=== PATIENT | female | born 1950 | race Caucasian/White ===

== ENCOUNTER → 2017-01-02 | Outpatient (CLI) | payer BC ==
[~2017-01-02] MED LIST: CLR10 PO; IBUP-1277 PO; ONDA4TAB7 SL; PRT/40 PO; TPM/50 PO
== END | disposition home or self-care (01) ==
LOC: C.MAMM 15:28
PROVIDERS: ATTEND Nurse Practitioner Family
DX: C50.919 Malignant neoplasm of unspecified site of unspecified female breast (principal); Z78.0 Asymptomatic menopausal state; Z87.828 Personal history of other (healed) physical injury and trauma; M85.80 Other specified disorders of bone density and structure, unspecified site

== ENCOUNTER → 2017-02-22 | Outpatient (CLI) | payer BC ==
[~2017-02-22] MED LIST changes: +PANT40TA2 PO; -PRT/40 PO
[2017-02-22 18:06] LABS: URINE APPEARANCE CLEAR (CLEAR); URINE BILIRUBIN NEG (NEG); URINE COLOR YELLOW; URINE NITRITE NEG (NEG); URINE SPECIFIC GRAVITY 1.025 (1.000-1.030); UROBILINOGEN NEG (NEG)
[2017-02-22 18:07] LABS: MANUAL MICROSCOPIC REQUIRED? NO; REVIEW REQ? NO
== END | disposition home or self-care (01) ==
LOC: C.LABSPEC 17:31
PROVIDERS: ATTEND Obstetrics & Gynecology
DX: R39.9 Unspecified symptoms and signs involving the genitourinary system (principal)

== ENCOUNTER → 2017-02-22 | Outpatient (CLI) | payer BC | END | disposition home or self-care (01) | LOC: C.PAPS 09:52 | PROVIDERS: ATTEND Obstetrics & Gynecology | DX: Z01.419 Encounter for gynecological examination (general) (routine) without abnormal findings (principal) ==

== ENCOUNTER → 2017-03-10 | Outpatient (CLI) | payer BC ==
--- NOTE | 2017-03-10 20:00 | DIAGNOSTIC IMAGING REPORT ---
LEFT FOREARM 2 VIEWS ROUTINE CLINICAL HISTORY: INJURY TO LT WRIST/FORARM COMPARISON: Left wrist radiographs February 16, 2015. FINDINGS: There is cortical buckling of the distal metaphysis of the left radius shown on AP projection. This could reflect a minimally displaced fracture. No acute fracture of the left ulna is identified. Alignment of left elbow is anatomic. IMPRESSION: Cortical buckling of the distal metaphysis of the left radius which could reflect a minimally displaced fracture. Electronically signed by: Fco Casarez M.D. 03/10/2017 7:58 PM Dictated Date/Time: 03/10/2017 7:56 PM
== END | disposition home or self-care (01) ==
LOC: C.RAD 18:44
PROVIDERS: ATTEND Nurse Practitioner Family
DX: S63.502A Unspecified sprain of left wrist, initial encounter (principal); X58.XXXA Exposure to other specified factors, initial encounter

== ENCOUNTER → 2017-04-05 | Outpatient (CLI) | payer BC | END | disposition home or self-care (01) | LOC: C.RDSM 15:30 | PROVIDERS: ATTEND Family Medicine Sports Medicine | DX: S62.102A Fracture of unspecified carpal bone, left wrist, initial encounter for closed fracture (principal); X58.XXXA Exposure to other specified factors, initial encounter ==

== ENCOUNTER → 2017-07-09 | Outpatient (CLI) | payer BC ==
[~2017-07-09] MED LIST changes: -PANT40TA2 PO; +PRT/40 PO
--- NOTE | 2017-07-09 14:12 | DIAGNOSTIC IMAGING REPORT ---
CHEST 2 VIEWS ROUTINE HISTORY: 67 years-old Female acute cough. COMPARISON: None available TECHNIQUE: Frontal lateral views of the chest FINDINGS: Cardiomediastinal and hilar silhouettes are within normal limits. There is no pneumothorax, pleural effusion or focal airspace consolidation. No overt pulmonary edema. Surgical clips project over the anterior chest. The bones appear grossly intact. IMPRESSION: No acute cardiopulmonary process. The above report was generated using voice recognition software. It may contain grammatical, syntax or spelling errors. Electronically signed by: Clif Taylor M.D. 07/09/2017 2:11 PM Dictated Date/Time: 07/09/2017 2:10 PM
== END | disposition home or self-care (01) ==
LOC: C.RAD 13:28
PROVIDERS: ATTEND Family Medicine Hospice and Palliative Medicine
DX: R05 Cough (principal); C50.911 Malignant neoplasm of unspecified site of right female breast

== ENCOUNTER → 2017-10-13 | Outpatient (CLI) | payer BC ==
[~2017-10-13] MED LIST changes: +GADAVIST IV PRN; +PANT40TA2 PO; -PRT/40 PO
--- NOTE | 2017-10-13 12:40 | DIAGNOSTIC IMAGING REPORT ---
CHEST COMBO CLINICAL HISTORY: FEMALE BREAST CANCER sternal and bone pain TECHNIQUE: Multi axial MRI acquisition pre and post gadolinium enhancement COMPARISON STUDY: None FINDINGS: Within the limitations of this modality the lungs are considered clear. No major nodularity is appreciated. Several small hepatic cysts. Signal characteristics of the osseous structures are unremarkable. There is no significant bone marrow replacing process. Hilar and mediastinal regions are considered negative for significant adenopathy. Signal characteristics of the sternum and anterior chest wall considered unremarkable. IMPRESSION: Negative study. No evidence for metastatic change . Several small hepatic cysts. 3.8 cm upper pole left renal cyst. The above report was generated using voice recognition software. It may contain grammatical, syntax or spelling errors. Electronically signed by: Horace Mcnamara M.D. 10/13/2017 12:38 PM Dictated Date/Time: 10/13/2017 12:34 PM
== END | disposition home or self-care (01) ==
LOC: C.MRI 11:13
PROVIDERS: ATTEND Nurse Practitioner Family
DX: C50.811 Malignant neoplasm of overlapping sites of right female breast (principal)

== ENCOUNTER 2017-10-30 22:47 | Emergency (ER) | payer BC ==
[~2017-10-30] VITALS: Ht 175.3 cm; Wt 77.7 kg
[~2017-10-30 22:47] MED LIST changes: -GADAVIST IV PRN
[2017-10-30 22:49] VITALS: TEMP 37.1; Ht 175.3 cm; Wt 77.7 kg
[2017-10-30] MEDS ORDERED: KETOROLAC TROMETHAMINE 30 MG/ML VIAL IV STA (23:10)
[2017-10-30] MEDS ORDERED: SODIUM CHLORIDE 0.9% 1000ML 1,000 ML IV STA (23:10)
[2017-10-30] MEDS ORDERED: ALBUT/IPRATROP 3MG/0.5MG NEB 3 ML VIAL INH STA (23:12)
[2017-10-30] MEDS ORDERED: DEXAMETHASONE **PF** INJ 10 MG/ML VIAL IV ONE (23:15)
--- NOTE | 2017-10-30 23:15 | EMERGENCY ROOM VISIT NOTE ---
History Report prepared by Iftikhar: Moon Tejada Under the Supervision of: Dr. Miquel Clay M.D. First contact with patient: 23:00 Chief Complaint: RESPIRATORY PROBLEMS Stated Complaint: FEELS AWFUL, SOB, FEVER, PHLEM, COUGHING History of Present Illness The patient is a 67 year old female who presents to the Emergency Room with complaints of constant shortness of breath beginning a four days ago. The patient notes her shortness of breath worsens when she lays flat. The patient reports a productive cough with yellow sputum, a headache, decreased appetite, and jaw pain. She denies any history of asthma or recent pneumonia. The patient went to [facility] [place] today and was put on azithromycin. She notes being started on doxycycline two days ago. The patient notes recently having cataracts surgery. The patient is worried she might have pneumonia or the flu. The patient reports a history of breast cancer an bilateral mastectomy. She states her last MRI of her chest was unremarkable and showed no signs of disease. The patient does not smoke. Source of History: patient Onset: 4 days ago Position: other (global ) Quality: other (shortness of breath) Timing: constant Modifying Factors (Worsening): other (laying flat) Associated Symptoms: + headache, + cough, + SOB Note: Pt notes jaw pain. Review of Systems See HPI for pertinent positives & negatives. A total of 10 systems reviewed and were otherwise negative. Past Medical & Surgical Medical Problems: (1) Breast cancer Surgical Problems: (1) History of bilateral mastectomy Family History Patient reports no known family medical history. Social History Smoking Status: Never Smoker Smokeless Tobacco Use: No Marital Status: Housing Status: lives with family Current/Historical Medications Scheduled Azithromycin (Zithromax Z-Shaggy), 1 PKT PO UD Doxycycline Monohydrate (Monodox), 100 MG PO BID Loratadine (Claritin), 10 MG PO DAILY Pantoprazole (Pantoprazole Sodium), 40 MG PO DAILY Topiramate (Topamax), 50 MG PO HS [Eye Drops], 1 DROP OPB DIRECTED Scheduled PRN Ibuprofen (Advil), 200 MG PO UD PRN for Pain Ondasetron Odt (Zofran Odt), 4 MG SL Q6H PRN for Nausea or Vomiting Allergies Coded Allergies: Sumatriptan (Verified Allergy, Severe, [id number], 10/30/17) Penicillins (Verified Allergy, Mild, 10/30/17) Codeine (Verified Allergy, Unknown, Itchiness and nausea., 10/30/17) Reported by PT Physical Exam Vital Signs Date Time Temp Pulse Resp B/P (MAP) Pulse Ox O2 Delivery O2 Flow Rate FiO2 10/31/17 00:22 71 18 117/72 99 10/30/17 23:33 98 Room Air 10/30/17 22:49 37.1 58 18 123/64 95 Room Air Physical Exam GENERAL: Patient is very anxious appearing, coughing periodically, and in no acute distress. HEENT: No acute trauma, normocephalic atraumatic, mucous membranes dry, rhinorrhea bilateral nares, posterior pharyngeal erythema, no nasal congestion, no scleral icterus. NECK: No stridor, no adenopathy, no meningismus, trachea is midline. LUNGS: No dyspnea. Clear to auscultation and equal bilaterally. No wheeze, no rhonchi. HEART: Regular rate and rhythm. No murmurs, rubs, gallops appreciated. ABDOMEN: Soft, nontender, bowel sounds positive, no masses appreciated, no peritonitis. BACK: No midline tenderness, no CVA tenderness EXTREMITIES: Normal motion all extremities, no cyanosis, no edema. NEUROLOGIC: Alert and oriented, no acute motor or sensory deficits, no focal weakness, cranial nerves grossly intact. SKIN: No rash, no jaundice, no diaphoresis. Medical Decision & Procedures ER Provider Diagnostic Interpretation: X ray results are stated below per my interpretation: Chest: 1 view: No infiltrate, no effusion, normal cardiac border. Similar Chest X ray to previous. Laboratory Results 10/30/17 23:30 Red Blood Count 4.60, Mean Corpuscular Volume 94.1, Mean Corpuscular Hemoglobin 32.8, Mean Corpuscular Hemoglobin Concent 34.9, Mean Platelet Volume 9.8, Neutrophils (%) (Auto) 67.7, Lymphocytes (%) (Auto) 21.7, Monocytes (%) (Auto) 9.3, Eosinophils (%) (Auto) 0.8, Basophils (%) (Auto) 0.3, Neutrophils # (Auto) 6.09, Lymphocytes # (Auto) 1.95, Monocytes # (Auto) 0.84, Eosinophils # (Auto) 0.07, Basophils # (Auto) 0.03 10/30/17 23:30 Test 10/30/17 23:30 White Blood Count 9.00 K/uL (4.8-10.8) Red Blood Count 4.60 M/uL (4.2-5.4) Hemoglobin 15.1 g/dL (12.0-16.0) Hematocrit 43.3 % (37-47) Mean Corpuscular Volume 94.1 fL (80-100) Mean Corpuscular Hemoglobin 32.8 pg (25-34) Mean Corpuscular Hemoglobin Concent 34.9 g/dl (32-36) Platelet Count 303 K/uL (130-400) Mean Platelet Volume 9.8 fL (7.4-10.4) Neutrophils (%) (Auto) 67.7 % Lymphocytes (%) (Auto) 21.7 % Monocytes (%) (Auto) 9.3 % Eosinophils (%) (Auto) 0.8 % Basophils (%) (Auto) 0.3 % Neutrophils # (Auto) 6.09 K/uL (1.4-6.5) Lymphocytes # (Auto) 1.95 K/uL (1.2-3.4) Monocytes # (Auto) 0.84 K/uL (0.11-0.59) Eosinophils # (Auto) 0.07 K/uL (0-0.5) Basophils # (Auto) 0.03 K/uL (0-0.2) RDW Standard Deviation 43.8 fL (36.4-46.3) RDW Coefficient of Variation 12.8 % (11.5-14.5) Immature Granulocyte % (Auto) 0.2 % Immature Granulocyte # (Auto) 0.02 K/uL (0.00-0.02) Anion Gap 7.0 mmol/L (3-11) Est Creatinine Clear Calc Drug Dose 60.9 ml/min Estimated GFR () 72.3 Estimated GFR (Non- 62.4 BUN/Creatinine Ratio 17.5 (10-20) Calcium Level 9.5 mg/dl (8.5-10.1) Laboratory results as reviewed by me. Medications Administered Medications (Trade) Dose Ordered Sig/Geremias Route Start Time Stop Time Status Last Admin Dose Admin Dexamethasone Sodium Phosphate (Dexamethasone Inj Pf) 10 mg NOW ONCE IV 10/30/17 23:15 10/30/17 23:16 DC 10/30/17 23:37 10 MG Ketorolac Tromethamine (Toradol Inj) 15 mg NOW STAT IV 10/30/17 23:10 10/30/17 23:12 DC 10/30/17 23:37 15 MG Sodium Chloride 1,000 ml @ 999 mls/hr Q1H1M STAT IV 10/30/17 23:10 10/31/17 00:10 DC 10/30/17 23:37 999 MLS/HR Albuterol/ Ipratropium (Duoneb) 3 ml NOW STAT INH 10/30/17 23:12 10/30/17 23:13 DC 10/30/17 23:23 3 ML Oxymetazoline HCl (Afrin 0.05% Nasal [place]) 1 sprays NOW ONCE NA 10/31/17 00:00 10/31/17 00:01 DC 10/31/17 00:17 1 SPRAYS Hydrocodone Bit/ Homatropine Methylb (Hycodan Elix Homepack 5/1.5MG/ 5ML) 1 homepack UD ONCE PO 10/31/17 00:15 10/31/17 00:16 DC 10/31/17 00:17 1 HOMEPACK ED Course 2302: The patient was evaluated in room B5. A complete history and physical exam was performed. 2310: Ordered Sodium Chloride 1000 ml @ 999 mls/hr, Toradol Inj 15 mg IV. 2312: Ordered Duoneb 3 ml INH. 2315: Ordered Dexamethasone Sodium Phosphate 10 mg IV. 0000: Ordered Oxymetazoline HCl 1 sprays NA. 0008: The patient would like to try Afrin and Hycodan and go home. I discussed that her symptoms may last a few more days. We reviewed the symptoms that she should return to the ER. I advised the patient to take only one of the antibiotics she was prescribed. 0015: Ordered Hydrocodone Bit/Homatropine Methylb 1 homepack PO. 0025: Reevaluated the patient. Discussed results and discharge instructions: She verbalized understanding and agreement. The patient is ready for discharge. Medical Decision Differential: Viral, Pharyngitis, Cellulitis, Pneumonia, Influenza, Meningitis, Sepsis, Bacteremia, amongst other pathologies entertained. 67 yr old female with flu like ill ness who over last 48 hours has started both doxycycline and azithromycin. With significant nasal congestion/discomfort and cough that seem to be main issues for her on top of fatigue, headache, body aches, chills, etc. Opted for single dose decadron along with toradol/afrin/ duoneb to see if help with symptoms. No wheezing and no real improvement with duoneb thus I feel bronchitis less likely. She does not have meningitis/sepsis by examination. Her has similar symptoms and she has had symptoms for several days. With local flu outbreak it is most likely this is influenza. As outside of treatment window and she does not have glaring medical comorbidities requiring Tamiflu, I do not see benefit of flu testing at this time. Home with Shikha (jamiene itching noted on chart). Reviewed symptoms requiring return and stressed rest and hydration. Medication Reconcilliation Current Medication List: was personally reviewed by me Blood Pressure Screening Patient's blood pressure: Normal blood pressure Impression Primary Impression: Upper respiratory infection Additional Impressions: Flu-like symptoms Nasal sinus congestion Scribe Attestation The scribe's documentation has been prepared under my direction and personally reviewed by me in its entirety. I confirm that the note above accurately reflects all work, treatment, procedures, and medical decision making performed by me. Departure Information Dispostion Home / Self-Care Referrals Zaina Quispe M.D. (PCP) Forms HOME CARE DOCUMENTATION FORM, IMPORTANT VISIT INFORMATION, WORK / SCHOOL INSTRUCTIONS Patient Instructions ED Flu, My [facility] Additional Instructions You have received a narcotic cough medication. Take one to two TEASPOONS of this every 4 to 6 hours as needed for cough. These medications may cause drowsiness and should not be used with other sedative medications. Do not drive , drink alcohol, perform dangerous activities, nor make important decisions after taking these medications. Problem Qualifiers
[2017-10-30] MEDS ORDERED: AZITTAB PO (23:35)
[2017-10-30] MEDS ORDERED: DOXY100C76 PO (23:35)
[2017-10-30] MEDS ORDERED: EYE DROPS OPB (23:35)
[2017-10-30] MEDS ORDERED: ONDA4TAB10 SL (23:35)
[2017-10-30 23:42] LABS: BASO % 0.3 %; BASO ABS # 0.03 K/uL (0-0.2); COMPLETE YES; EOS % 0.8 %; HEMATOCRIT 43.3 % (37-47); IG% 0.2 %; LYMPH % 21.7 %; LYMPH ABS # 1.95 K/uL (1.2-3.4); MEAN CELL VOLUME 94.1 fL (80-100); MEAN CORPUSCULAR HEMOGLOBIN 32.8 pg (25-34); MEAN CORPUSCULAR HGB CONC 34.9 g/dl (32-36); MEAN PLATELET VOLUME 9.8 fL (7.4-10.4); MONO % 9.3 %; NEUT % 67.7 %; PLATELET COUNT 303 K/uL (130-400)
[2017-10-30 23:59] LABS: BUN/CREATININE RATIO 17.5 (10-20); CALCIUM 9.5 mg/dl (8.5-10.1); CREATININE 0.95 mg/dl (0.60-1.20)
[2017-10-31] MEDS ORDERED: OXYMETAZOLINE HCL 0.05% NA SPR 15 ML BTL ONE
[2017-10-31] MEDS ORDERED: HYCODAN 60ML BOTTLE HOMEPACK PO ONE (00:15)
[2017-10-31 00:22] VITALS: BP 117/72; PULSE 71; O2SAT 99
--- NOTE | 2017-10-31 07:32 | DIAGNOSTIC IMAGING REPORT ---
CHEST ONE VIEW PORTABLE HISTORY: cough COMPARISON: Chest 07/09/2017. FINDINGS: The lungs are clear. Cardiac silhouette is normal in size. No pleural effusions. No pneumothorax. Surgical clips within the anterior chest. IMPRESSION: No acute process. Electronically signed by: Yogesh Charlton M.D. 10/31/2017 7:30 AM Dictated Date/Time: 10/31/2017 7:30 AM
== END 2017-10-31 00:23 | disposition home or self-care (01) ==
LOC: C.EDB 22:48
DX: J06.9 Acute upper respiratory infection, unspecified (principal); J11.1 Influenza due to unidentified influenza virus with other respiratory manifestations; R09.81 Nasal congestion; Z85.3 Personal history of malignant neoplasm of breast; Z90.13 Acquired absence of bilateral breasts and nipples; Z79.899 Other long term (current) drug therapy; Z88.1 Allergy status to other antibiotic agents; Z88.5 Allergy status to narcotic agent; Z88.8 Allergy status to other drugs, medicaments and biological substances

== ENCOUNTER 2018-01-18 09:01 | Emergency (ER) | payer BC, OTHER ==
[~2018-01-18] VITALS: Ht 177.8 cm; Wt 79.1 kg
[~2018-01-18 09:01] MED LIST changes: +AZITTAB PO; +DOXY100C76 PO; +EYE DROPS OPB; +ONDA4TAB10 SL; -ONDA4TAB7 SL
[2018-01-18 09:12] VITALS: TEMP 37; Ht 177.8 cm; Wt 79.1 kg
[2018-01-18] MEDS ORDERED: SULF400T7 PO (09:25)
[2018-01-18] MEDS ORDERED: TRAM-10 PO (09:25)
[2018-01-18] MEDS ORDERED: ATR25 PO (09:25)
[2018-01-18] MEDS ORDERED: ASPIRIN 81 MG CHEW PO STA (09:56)
--- NOTE | 2018-01-18 10:10 | DIAGNOSTIC IMAGING REPORT ---
CHEST ONE VIEW PORTABLE CLINICAL HISTORY: Atypical chest pain COMPARISON STUDY: 10/30/2017 FINDINGS: The cardiac and mediastinal contours are normal. There is no evidence of focal pulmonary consolidation. There is no evidence of failure. No pleural effusions are visualized.[ Surgical clips project over both breasts in both axillary regions. There are minimal left basilar atelectatic changes IMPRESSION: No active disease in the chest. Electronically signed by: Ramon Villarreal M.D. 01/18/2018 10:09 AM Dictated Date/Time: 01/18/2018 10:08 AM
--- NOTE | 2018-01-18 10:17 | EMERGENCY ROOM VISIT NOTE ---
History Report prepared by Iftikhar: Nithin Montoya Under the Supervision of: Dr. Henry Lai M.D. First contact with patient: 09:49 Chief Complaint: PAIN (GENERALIZED) Stated Complaint: L BREAST PAIN History of Present Illness The patient is a 67 year old female who presents to the Emergency Room with complaints of constant excruciating left breast pain starting last night. The patient states that she had breast reconstructive surgery on 01/09 after having a double mastectomy for breast cancer. She states that she is no longer having any cancer treatments. The patient notes that yesterday she had drains removed from the area, and she has not been having any drainage. The patient denies any blood thinners or recent falls. Source of History: patient Onset: last night Position: other (left breast) Symptom Intensity: excruciating Timing: constant Associated Symptoms: + SOB Review of Systems See HPI for pertinent positives and negatives. A total of ten systems were reviewed and were otherwise negative. Past Medical & Surgical Medical Problems: (1) Breast cancer Surgical Problems: (1) History of bilateral mastectomy Family History Patient reports no known family medical history. Social History Smoking Status: Never Smoker Marital Status: Housing Status: lives with family Current/Historical Medications Scheduled Pantoprazole (Pantoprazole Sodium), 40 MG PO DAILY Sulfamethoxazole-Trimethoprim (Bactrim 400MG/80MG), 1 TAB PO BID Topiramate (Topamax), 50 MG PO HS Scheduled PRN Hydroxyzine HCl (Hydroxyzine HCl), 25 MG PO Q6 PRN for Itching Ibuprofen (Advil), 200 MG PO UD PRN for Pain Ibuprofen Tab (Motrin), 800 MG PO Q8H PRN for Pain Ondasetron Odt (Zofran Odt), 4 MG SL Q6H PRN for Nausea or Vomiting Tramadol (Ultram), 100 MG PO Q4H PRN for Pain Allergies Coded Allergies: Sumatriptan (Verified Allergy, Severe, [id number], 01/18/18) Penicillins (Verified Allergy, Mild, 01/18/18) Acetaminophen (Unverified Allergy, Unknown, RASH, 01/18/18) Codeine (Verified Allergy, Unknown, Itchiness and nausea., 01/18/18) Reported by PT Oxycodone (Unverified Allergy, Unknown, RASH, 01/18/18) Physical Exam Vital Signs Date Time Temp Pulse Resp B/P (MAP) Pulse Ox O2 Delivery O2 Flow Rate FiO2 01/18/18 13:03 72 20 129/68 95 Room Air 01/18/18 11:20 75 01/18/18 11:19 94 Room Air 01/18/18 11:19 74 18 144/60 94 Room Air 01/18/18 09:12 37.0 81 18 169/110 96 Room Air Physical Exam Physical Exam GENERAL: She is oriented to person, place, and time. She appears well- developed and well-nourished. She does not appear distressed. ____ HENT: Exam performed. Head: Normocephalic and atraumatic. Right Ear: External ear normal. No mastoid tenderness. Left Ear: External ear normal. No mastoid tenderness. Mouth/Throat: The oropharynx is clear and moist. No trismus in the jaw. No dental abscesses or uvula swelling. No oropharyngeal exudate or tonsillar abscesses. ____ EYES: Conjunctivae and EOM are normal. Pupils are equal, round, and reactive to light. Right eye exhibits no discharge. Left eye exhibits no discharge. No scleral icterus. ____ NECK: Normal range of motion. Neck supple. No JVD present. No spinous process tenderness present. No carotid bruit present. No rigidity. No tracheal deviation and normal range of motion present. No Brudzinski's sign and no Kernig 's sign noted. ____ CV: Normal rate, regular rhythm, normal heart sounds and intact distal pulses. There is no peripheral edema. Palpable radial pulses bue. ____ PULM/CHEST: Effort normal and breath sounds normal. No respiratory distress. No stridor. She has no wheezes. She has no rales. Chest Wall: Incisions from double mastectomy who no erythema or discharge. Wounds appear to be healing appropriately. ____ ABD: The abdomen is soft. Bowel sounds are normal. She has no distension. No mass is present. There is no tenderness. There is no rebound, no guarding, no Singer's sign and no tenderness at McBurney's point. Rovsig negative MUSC/SKEL: Normal range of motion. There is no peripheral edema, tenderness or deformity. LYMPH: No cervical adenopathy. ____ NEURO: She is alert and oriented to person, place, and time. She has normal strength. No cranial nerve deficit or sensory deficit. Coordination and gait normal. GCS eye subscore is 4. GCS verbal subscore is 5. GCS motor subscore is 6. Cerebellar tests wnl. ____ SKIN: Skin is warm and dry. She is not diaphoretic. ____ PSYCH: She has a normal mood and affect. Her behavior is normal. Judgment and thought content normal. ____ Medical Decision & Procedures ER Provider Diagnostic Interpretation: Radiology results as stated below per my review and radiologist interpretation: CHEST ONE VIEW PORTABLE CLINICAL HISTORY: Atypical chest pain COMPARISON STUDY: 10/30/2017 FINDINGS: The cardiac and mediastinal contours are normal. There is no evidence of focal pulmonary consolidation. There is no evidence of failure. No pleural effusions are visualized.[ Surgical clips project over both breasts in both axillary regions. There are minimal left basilar atelectatic changes IMPRESSION: No active disease in the chest. Electronically signed by: Ramon Villarreal M.D. 01/18/2018 10:09 AM Dictated Date/Time: 01/18/2018 10:08 AM CHEST CTA for PULMONARY ARTERIES CT DOSE: 375.79 mGy.cm HISTORY: Short of breath. Anterior chest pain. TECHNIQUE: Multiaxial CT images of the chest were performed following the intravenous administration of contrast to evaluate the pulmonary arteries. Maximal intensity projection images were also obtained. A dose lowering technique was utilized adhering to the principles of ALARA. COMPARISON STUDY: Chest 01/18/2018. FINDINGS: Normal caliber thoracic aorta with no evidence for dissection. The heart is normal in size. No pleural or pericardial effusions. Mild narrowing of approximately 30% the proximal left subclavian artery due to the noncalcified plaque. No filling defects within the pulmonary arteries to suggest pulmonary embolus. The visualized portions of the liver and spleen are unremarkable. A few prominent mediastinal and hilar lymph nodes which measure subcentimeter in short axis diameter. Therefore, these do not meet CT criteria for pathologic involvement. No axillary lymphadenopathy. There are bilateral breast implants. Trace gas and fluid surrounding the implants as well as surgical clips suggestive of recent postoperative change. The implants appear intact. There is 9.3 x 3.1 cm slightly hyperdense fluid collection within the right lateral chest wall best seen on image 82 of 233. This favors a postoperative hematoma. No fractures within the visualized osseous structures. Questionable tiny scattered lucent lesions seen within the spine and sternum. This could be due to osteopenia. The central airways are patent. No pneumothorax. Bibasilar groundglass and linear densities. This favors subsegmental atelectasis. There are few small linear scarlike densities within the right lung apex. No focal lung consolidations to suggest pneumonia. IMPRESSION: 1. No evidence for pulmonary embolus. 2. Trace gas and fluid surrounding the bilateral breast implants as well as surgical clips suggestive of recent postoperative change. The implants appear intact. 3. A 9.3 x 3.1 cm slightly hyperdense fluid collection within the right lateral chest wall which favors a postoperative hematoma. 4. Questionable tiny scattered lucent lesions seen within the spine and sternum. This could be due to osteopenia. 5. Additional findings as described above. Electronically signed by: Yogesh Charlton M.D. 01/18/2018 11:29 AM Dictated Date/Time: 01/18/2018 11:17 AM Laboratory Results 01/18/18 10:13 Red Blood Count 3.43, Mean Corpuscular Volume 93.6, Mean Corpuscular Hemoglobin 30.9, Mean Corpuscular Hemoglobin Concent 33.0, Mean Platelet Volume 9.2, Neutrophils (%) (Auto) 57.5, Lymphocytes (%) (Auto) 25.9, Monocytes (%) (Auto) 13.3, Eosinophils (%) (Auto) 2.5, Basophils (%) (Auto) 0.5, Neutrophils # (Auto ) 3.51, Lymphocytes # (Auto) 1.58, Monocytes # (Auto) 0.81, Eosinophils # (Auto ) 0.15, Basophils # (Auto) 0.03 01/18/18 10:13 Test 01/18/18 10:13 White Blood Count 6.10 K/uL (4.8-10.8) Red Blood Count 3.43 M/uL (4.2-5.4) Hemoglobin 10.6 g/dL (12.0-16.0) Hematocrit 32.1 % (37-47) Mean Corpuscular Volume 93.6 fL (80-100) Mean Corpuscular Hemoglobin 30.9 pg (25-34) Mean Corpuscular Hemoglobin Concent 33.0 g/dl (32-36) Platelet Count 434 K/uL (130-400) Mean Platelet Volume 9.2 fL (7.4-10.4) Neutrophils (%) (Auto) 57.5 % Lymphocytes (%) (Auto) 25.9 % Monocytes (%) (Auto) 13.3 % Eosinophils (%) (Auto) 2.5 % Basophils (%) (Auto) 0.5 % Neutrophils # (Auto) 3.51 K/uL (1.4-6.5) Lymphocytes # (Auto) 1.58 K/uL (1.2-3.4) Monocytes # (Auto) 0.81 K/uL (0.11-0.59) Eosinophils # (Auto) 0.15 K/uL (0-0.5) Basophils # (Auto) 0.03 K/uL (0-0.2) RDW Standard Deviation 45.1 fL (36.4-46.3) RDW Coefficient of Variation 13.3 % (11.5-14.5) Immature Granulocyte % (Auto) 0.3 % Immature Granulocyte # (Auto) 0.02 K/uL (0.00-0.02) Anion Gap 5.0 mmol/L (3-11) Est Creatinine Clear Calc Drug Dose 64.3 ml/min Estimated GFR () 74.2 Estimated GFR (Non- 64.0 BUN/Creatinine Ratio 10.0 (10-20) Calcium Level 9.2 mg/dl (8.5-10.1) Troponin I < 0.015 ng/ml (0-0.045) Laboratory results reviewed by me Medications Administered Medications (Trade) Dose Ordered Sig/Geremias Route Start Time Stop Time Status Last Admin Dose Admin Aspirin (Aspirin Chew) 324 mg NOW STAT PO 01/18/18 09:56 01/18/18 09:58 DC 01/18/18 10:27 324 MG ECG Per My Interpretation Indication: other (left breast pain) Rate (beats per minute): 66 Rhythm: sinus rhythm Findings: other (OK, QRS, and QTc intervals are within normal limits. No ST elevation or depression) ED Course 0949: The patient was evaluated in room C4. A complete history and physical exam was performed. 0956: Aspirin 324mg PO 1154: Vital signs stable. Labs within normal limits including hemoglobin 10.6 and troponin negative. CTA of chest shows no pulmonary embolism but does show A 9.3 x 3.1 cm slightly hyperdense fluid collection within the right lateral chest wall which favors a postoperative hematoma. I discussed the patient's case with Dr. Kierra [facility], and he states that the hematoma is normal for the post-op procedure where the drains were recently pulled. I asked if he thinks that it is better to admit the patient to see if the hematoma is stable as well as the hemoglobin. He thinks that it is unnecessary, and he will follow up with the patient tomorrow. DISCHARGE - Plan of care discussed with patient and questions answered. The patient was given both verbal and printed discharge instructions. The patient verbalized understanding and ability to comply. The patient is to seek outpatient follow up as noted in the discharge instructions. The patient verbalized understanding and ability to comply. The patient is discharged in stable condition. The patient was instructed to return for worsening symptoms. Medical Decision Vital signs stable. Labs within normal limits including hemoglobin 10.6 and troponin negative. CTA of chest shows no pulmonary embolism but does show A 9.3 x 3.1 cm slightly hyperdense fluid collection within the right lateral chest wall which favors a postoperative hematoma. I discussed the patient's case with Dr. Kierra [facility], and he states that the hematoma is normal for the post-op procedure where the drains were recently pulled. I asked if he thinks that it is better to admit the patient to see if the hematoma is stable as well as the hemoglobin. He thinks that it is unnecessary, and he will follow up with the patient tomorrow. DISCHARGE - Plan of care discussed with patient and questions answered. The patient was given both verbal and printed discharge instructions. The patient verbalized understanding and ability to comply. The patient is to seek outpatient follow up as noted in the discharge instructions. The patient verbalized understanding and ability to comply. The patient is discharged in stable condition. The patient was instructed to return for worsening symptoms. Medication Reconcilliation Current Medication List: was personally reviewed by me Blood Pressure Screening Patient's blood pressure: Elevated blood pressure Blood pressure disposition: Elevated BP felt to be situational Consults Time Called: 1140 Consulting Physician: Dr. Kierra [facility] Returned Call: [phone] I discussed the patient's case with Dr. Kierra [facility], and he states that the hematoma is normal for the post-op procedure where the drains were recently pulled. I asked if he thinks that it is better to admit the patient to see if the hematoma is stable as well as the hemoglobin. He thinks that it is unnecessary, and he will follow up with the patient tomorrow. Impression Primary Impression: Post-operative complication Scribe Attestation The scribe's documentation has been prepared under my direction and personally reviewed by me in its entirety. I confirm that the note above accurately reflects all work, treatment, procedures, and medical decision making performed by me. The chart was completed utilizing [employer] Speech voice recognition software. Grammatical errors, random word insertions, pronoun errors, and incomplete sentences are an occasional consequence of this system due to software limitations, ambient noise, and hardware issues. Any formal questions or concerns about the content, text, or information contained within the body of this dictation should be directly addressed to the physician for clarification. Departure Information Dispostion Home / Self-Care Prescriptions Ibuprofen Tab (MOTRIN) 800 Mg Tab 800 MG PO Q8H Y for Pain, #30 TAB Prov: Henry Lai M.D. 01/18/18 Referrals Zaina Quispe M.D. (PCP) Forms HOME CARE DOCUMENTATION FORM, IMPORTANT VISIT INFORMATION, WORK / SCHOOL INSTRUCTIONS Patient Instructions ED Post Op Pain, ED Wound Check Post Op Bleeding, [facility] Problem Qualifiers Primary Impression: Post-operative complication Surgical complication system/body Area: subcutaneous tissue Surgical complication type: hematoma Procedure type: non-dermatologic Qualified Codes : L76.32 - Postprocedural hematoma of skin and subcutaneous tissue following other procedure
[2018-01-18 10:24] LABS: BASO % 0.5 %; BASO ABS # 0.03 K/uL (0-0.2); EOS % 2.5 %; EOS ABS # 0.15 K/uL (0-0.5); HEMATOCRIT 32.1 % (37-47); HEMOGLOBIN 10.6 g/dL (12.0-16.0); IG# 0.02 K/uL (0.00-0.02); LYMPH % 25.9 %; LYMPH ABS # 1.58 K/uL (1.2-3.4); MEAN CELL VOLUME 93.6 fL (80-100); MEAN CORPUSCULAR HEMOGLOBIN 30.9 pg (25-34); MEAN PLATELET VOLUME 9.2 fL (7.4-10.4); MONO % 13.3 %; MONO ABS # 0.81 K/uL (0.11-0.59); NEUT % 57.5 %; NEUT ABS # 3.51 K/uL (1.4-6.5); PLATELET COUNT 434 K/uL (130-400); RED CELL DISTRIBUTION WIDTH CV 13.3 % (11.5-14.5); RED CELL DISTRIBUTION WIDTH SD 45.1 fL (36.4-46.3)
[2018-01-18 10:40] LABS: BLOOD UREA NITROGEN 9 mg/dl (7-18); CALCIUM 9.2 mg/dl (8.5-10.1); CARBON DIOXIDE 24 mmol/L (21-32); CREATININE 0.93 mg/dl (0.60-1.20); GLUCOSE 91 mg/dl (70-99); POTASSIUM 3.9 mmol/L (3.5-5.1); SODIUM 137 mmol/L (136-145)
[2018-01-18] MEDS ORDERED: OPTIRAY 320 IV PRN (11:15)
[2018-01-18 11:19] VITALS: O2SAT 94
--- NOTE | 2018-01-18 11:31 | DIAGNOSTIC IMAGING REPORT ---
CHEST CTA for PULMONARY ARTERIES CT DOSE: 375.79 mGy.cm HISTORY: Short of breath. Anterior chest pain. TECHNIQUE: Multiaxial CT images of the chest were performed following the intravenous administration of contrast to evaluate the pulmonary arteries. Maximal intensity projection images were also obtained. A dose lowering technique was utilized adhering to the principles of ALARA. COMPARISON STUDY: Chest 01/18/2018. FINDINGS: Normal caliber thoracic aorta with no evidence for dissection. The heart is normal in size. No pleural or pericardial effusions. Mild narrowing of approximately 30% the proximal left subclavian artery due to the noncalcified plaque. No filling defects within the pulmonary arteries to suggest pulmonary embolus. The visualized portions of the liver and spleen are unremarkable. A few prominent mediastinal and hilar lymph nodes which measure subcentimeter in short axis diameter. Therefore, these do not meet CT criteria for pathologic involvement. No axillary lymphadenopathy. There are bilateral breast implants. Trace gas and fluid surrounding the implants as well as surgical clips suggestive of recent postoperative change. The implants appear intact. There is 9.3 x 3.1 cm slightly hyperdense fluid collection within the right lateral chest wall best seen on image 82 of 233. This favors a postoperative hematoma. No fractures within the visualized osseous structures. Questionable tiny scattered lucent lesions seen within the spine and sternum. This could be due to osteopenia. The central airways are patent. No pneumothorax. Bibasilar groundglass and linear densities. This favors subsegmental atelectasis. There are few small linear scarlike densities within the right lung apex. No focal lung consolidations to suggest pneumonia. IMPRESSION: 1. No evidence for pulmonary embolus. 2. Trace gas and fluid surrounding the bilateral breast implants as well as surgical clips suggestive of recent postoperative change. The implants appear intact. 3. A 9.3 x 3.1 cm slightly hyperdense fluid collection within the right lateral chest wall which favors a postoperative hematoma. 4. Questionable tiny scattered lucent lesions seen within the spine and sternum. This could be due to osteopenia. 5. Additional findings as described above. Electronically signed by: Yogesh Charlton M.D. 01/18/2018 11:29 AM Dictated Date/Time: 01/18/2018 11:17 AM
[2018-01-18] MEDS ORDERED: IBUP-1451 PO (12:35)
[2018-01-18 13:03] VITALS: BP 129/68; PULSE 72; O2SAT 95
== END 2018-01-18 13:05 | disposition home or self-care (01) ==
LOC: EDBD 09:01 → C.EDC 09:03
DX: L76.32 Postprocedural hematoma of skin and subcutaneous tissue following other procedure (principal); Z90.13 Acquired absence of bilateral breasts and nipples; Z85.3 Personal history of malignant neoplasm of breast; Z88.8 Allergy status to other drugs, medicaments and biological substances; Z88.0 Allergy status to penicillin; Z88.6 Allergy status to analgesic agent; Z88.5 Allergy status to narcotic agent

== ENCOUNTER → 2018-06-04 | Outpatient (CLI) | payer OTHER ==
[~2018-06-04] MED LIST changes: +ATR25 PO; -AZITTAB PO; -CLR10 PO; -DOXY100C76 PO; -EYE DROPS OPB; +IBUP-1451 PO; +SULF400T7 PO; +TRAM-10 PO
== END | disposition home or self-care (01) ==
LOC: C.RDSM 15:30
PROVIDERS: ATTEND Family Medicine Sports Medicine
DX: M25.561 Pain in right knee (principal); Z88.5 Allergy status to narcotic agent; Z88.8 Allergy status to other drugs, medicaments and biological substances; Z88.0 Allergy status to penicillin

== ENCOUNTER 2022-12-19 19:03 | Inpatient (IN) ==
[2022-12-19] MEDS ORDERED: ONDANSETRON INJ 2 MG/ML 2 ML VIAL ONE (19:22)
[2022-12-19] MEDS ORDERED: ONDANSETRON INJ 2 MG/ML 2 ML VIAL IV STA ×3 (19:34→23:42)
[2022-12-19] MEDS ORDERED: MoRPHine SULFATE 4 MG/ML 1 ML CARP\\VIAL IV PRN (19:56)
[2022-12-19] MEDS ORDERED: MoRPHine SULFATE 4 MG/ML 1 ML CARP\\VIAL IV STA (19:56)
[2022-12-19] MEDS ORDERED: diphenhydrAMINE 50 MG/ML VIAL IV STA (19:56)
[2022-12-19 19:58] LABS: Alanine Aminotransferase 59 U/L (7-52); Albumin Globulin Ratio 1.4 (0.9-2); Albumin Level 4.4 gm/dl (3.4-5.0); Alkaline Phosphatase 99 U/L (34-104); Anion Gap 12 (3-11); Aspartate Aminotransferase 26 U/L (13-39); BUN Creatinine Ratio 12.9 (10-20); Bilirubin,Total 0.3 mg/dl (0.2-1.0); Blood Urea Nitrogen 13 mg/dl (6-23); Calcium 9.8 mg/dl (8.5-10.1); Carbon Dioxide 21 mmol/L (21-32); Chloride 108 mmol/L (98-107); Est GFR (African American) 64.9 ml/min; Globulin 3.1 gm/dl (2.5-4.0); Glucose 123 mg/dl (70-99(Fasting)); Lipase 78 U/L (11-82); Potassium 3.8 mmol/L (3.5-5.1); Sodium 141 mmol/L (136-145); Total Protein 7.5 gm/dl (6.0-8.3)
[2022-12-19] MEDS ORDERED: SODIUM CHLORIDE 0.9% 1000ML 500 ML IV ONE (19:58)
--- NOTE | 2022-12-19 20:10 | Emergency Department Note ---
Impression & Plan Left sided abdominal pain, Vomiting, Renal colic, Leukocytosis, S/P colonoscopy ED Provider Note NAME: GEMINI GLOVER AGE: 72 SEX: F : 1950 ARRIVES VIA: Walk-In INFORMANT: [Patient] ED PROVIDER(S): [Neo Ramirez MD] CHIEF COMPLAINT: Abdominal pain HISTORY OF PRESENT ILLNESS: The patient is a 72-year-old female who presents to the ED with lower left-sided abdominal pain that is now radiating to her left flank. She had the pain since having a colonoscopy 5 days ago. Things just keep getting worse and worse. The pain is now severe. She has had nausea no vomiting, she has felt warm but there has been no documented fever, no cough or cold or chest pain. The patient states that she is not eating and drinking that much and cannot recall the last time she urinated. There has not been any diarrhea. She is concerned that there may be an infection or something wrong since the colonoscopy. PMHx/PSHx: See Below SOCIAL HISTORY: See Below. PHYSICAL EXAM: GENERAL: Patient is in significant distress from pain. HEENT: No acute trauma, normocephalic atraumatic, mucous membranes moist, no nasal congestion. NECK: No stridor, no adenopathy, no meningismus, trachea is midline. LUNGS: Clear to auscultation bilaterally, no wheeze, no rhonchi, breath sounds equal. HEART: Without murmurs gallops or rubs, regular rate and rhythm. ABDOMEN: Soft, somewhat distended abdomen with tenderness in the pelvis and the left lower quadrant. EXTREMITIES: No cyanosis or edema, full range of motion of all the joints without pain or difficulty, no signs for acute trauma. NEUROLOGIC: Oriented x 3, no acute motor or sensory deficits, no focal weakness. SKIN: No rash, no jaundice, no diaphoresis. DIFFERENTIAL DIAGNOSIS: Bowel perforation, abscess, diverticulitis, UTI, hydronephrosis, urinary retention, bowel obstruction, among others. EMERGENCY DEPARTMENT COURSE/PROCEDURES: Prior/Outside records reviewed: None ECG per my interpretation: Indication was abdominal pain. The ECG shows a normal sinus rhythm with a rate of 69. There is no ST elevation, no PVCs. The QTc is 428 Continuous Cardiac Monitoring per my interpretation: An order was placed for continuous cardiac monitoring. The monitor shows a rate of 74 with normal sinus rhythm. Observation Note: The patient was placed in observation status at 1905. Observ ation was utilized to determine whether her pain could be adequately controlled. During the time in observation, the patient was frequently reassessed and received IV hydration and IV pain medication. On Final reassessment the patient was found to have a ureteral stone and was still persisting with left-sided abdominal pain--the patient will be admitted at this time. A total observation time of around 5 hours. MEDICAL DECISION MAKING: There is a mild leukocytosis, this certainly could be consistent with infection or just the stress of her current situation. There was a normal hemoglobin. Platelet count very mildly elevated. No renal failure or significant e lectrolyte abnormality. No concerning liver enzyme elevation. No evidence for pancreatitis. Urinalysis showed some blood consistent with renal colic, no urinary infection. COVID test returned negative. Abdominal and pelvis CT shows a large 6 mm left ureteral stone with hydronephrosis. No bowel perforation or diverticulitis seen. On exam, the patient was quite uncomfortable and very nauseated. Patient received IV saline for hydration, she was given 1.5 L. She was given IV Zofran for nausea, she received IV Phenergan for additional nausea control. She was given IV morphine for pain, IV Toradol for pain. She eventually was given IV Dilaudid for pain control. She received IV diphenhydramine for additional nausea and symptom control. The patient does feel improved from when she first arrived but is still having discomfort and still having nausea. She is not in any condition for discharge home. I did speak with urology, I did speak with the on-call hospitalist. Patient is aware of all findings, case management has been involved. DISPOSITION: Given patient's findings and ongoing discomfort/nausea, hospitalization is warranted. Past Med/Surg History Medical History Breast cancer Chronic migraine Fever Graves disease Graves' eye disease Migraines Muscle ache Nocturnal polyuria Surgical History History of ankle surgery History of bilateral mastectomy History of cataract surgery Family History Mother , age 64 of colon cancer Colon cancer Father , age 86 during a surgical procedure. Diabetes Social History Smoking Status: Never smoker Hx Alcohol Use: Yes Alcohol type: wine Alcohol Intake Frequency Comment: One glass every 2 weeks on average Preferred Language: [place] Visual Impairment: No Limitations Beliefs That Will Affect Care: None marital status: Current Living Situation: Spouse current occupational status: retired current occupation: Retired (2015) [employer] Feels Safe at Home: Yes Allergies Allergies Allergy/AdvReac Type Severity Reaction Status Date / Time sumatriptan Allergy Severe SOB-SWELLIN Verified 12/19/22 12:34 G-RASH codeine Allergy Intermediate Itchiness Verified 12/19/22 12:34 and nausea. oxycodone Allergy Intermediate Rash Verified 12/19/22 12:34 Penicillins Allergy Intermediate Rash Verified 12/19/22 12:34 Home Meds Home Medications Medication Instructions Recorded Confirmed albuterol sulfate 90 mcg/actuation 2 puff inhalation QID PRN Wheezing 02/10/20 12/19/22 aerosol inhaler pantoprazole 40 mg tablet,delayed 40 mg PO DAILY 08/10/20 12/19/22 release mecobalamin (vitamin B12) 1,000 1,000 mcg PO DAILY 09/23/21 12/19/22 mcg chewable tablet venlafaxine 75 mg capsule,extended 75 mg PO DAILY 02/25/22 12/19/22 release 24 hr vitamin E 1,150 unit/1.25 mL oral 1,150 unit PO DAILY 07/07/22 12/19/22 liquid cholecalciferol (vitamin D3) 50 2,000 unit PO DAILY 08/03/22 12/19/22 mcg (2,000 unit) capsule atorvastatin 40 mg tablet 40 mg PO QPM 12/19/22 12/19/22 methimazole 10 mg tablet 10 mg PO DAILY 12/19/22 12/19/22 Previous Rx's Medication Instructions Recorded riboflavin (vitamin B2) 400 mg 400 mg PO DAILY #30 tabs 08/27/21 tablet ubrogepant 100 mg tablet (Ubrelvy) 100 mg PO .COMPLEX PRN migraine 12/19/22 headache #10 tabs Results & Data (ED) Vital Signs Vital Signs - 24 hr 12/19/22 19:06 Temperature 35.9 C L Temperature Source Temporal Artery Scan Pulse Rate 74 Respiratory Rate 16 Respiratory Effort / Characteristics Non-Labored Spontaneous Respiratory Depth Normal Blood Pressure 143/79 H Blood Pressure Mean 100 Blood Pressure Position Sitting Pulse Oximetry 97 Oxygen Delivery Method Room Air Sepsis Recent Fever Within 48 Hours No Sepsis New/Unexplained Change in Mental Status N/A Sepsis Action Taken by Nursing No Action Required Home Medications Current Medication List: was personally reviewed by me Laboratory Data Attestation: I reviewed the patient's lab results. 12/19/22 19:13 12/19/22 19:13 Lab Results 12/19/22 12/19/22 12/20/22 Range/Units 19:13 19:13 00:30 WBC 10.90 H (4.8-10.8) K/ul RBC 4.79 (4.20-5.40) M/uL Hgb 14.9 (12.0-16.0) g/dl Hct 43.5 (37.0-47.0) % MCV 90.8 (80.0-100.0) fL MCH 31.1 (25.0-34.0) pg MCHC 34.3 (32.0-36.0) g/dL RDW Std Deviation 39.9 (36.4-46.3) fL RDW Coeff of Jeny 11.9 (11.5-14.5) % Plt Count 406 H (130-400) K/uL MPV 10.4 (9.4-12.4) fL Immature Gran % (Auto) 0.4 % Neut % (Auto) 77.1 % Lymph % (Auto) 16.7 % [place] % (Auto) 4.9 % Eos % (Auto) 0.3 % Baso % (Auto) 0.6 % Neut # (Auto) 8.42 H (1.40-6.50) K/uL Lymph # (Auto) 1.82 (1.2-3.4) K/uL [place] # (Auto) 0.53 (0.11-0.59) K/uL Eos # (Auto) 0.03 (0-0.50) K/uL Baso # (Auto) 0.06 (0-0.2) K/uL Immature Gran # (Auto) 0.04 (0.01-0.20) K/uL Sodium 141 (136-145) mmol/L Potassium 3.8 (3.5-5.1) mmol/L Chloride 108 H (98-107) mmol/L Carbon Dioxide 21 (21-32) mmol/L Anion Gap 12 H (3-11) BUN 13 (6-23) mg/dl Creatinine 1.01 (0.6-1.2) mg/dl Est Cr Clr Drug Dosing Not Reportable Est GFR ( Amer) 64.9 ml/min Est GFR (Non-Af Amer) 56.0 ml/min BUN/Creatinine Ratio 12.9 (10-20) Glucose 123 H (70-99(Fasting)) mg/dl Calcium 9.8 (8.5-10.1) mg/dl Total Bilirubin 0.3 (0.2-1.0) mg/dl AST 26 (13-39) U/L ALT 59 H (7-52) U/L Alkaline Phosphatase 99 (34-104) U/L Total Protein 7.5 (6.0-8.3) gm/dl Albumin 4.4 (3.4-5.0) gm/dl Globulin 3.1 (2.5-4.0) gm/dl Albumin/Globulin Ratio 1.4 (0.9-2) Lipase 78 (11-82) U/L Urine Color Urine Appearance (Clear) Urine pH (4.5-7.5) Ur Specific [place] (1.000-1.030) Urine Protein (Negative) Urine Glucose (UA) (Negative) Urine Ketones (Negative) Urine Blood (Negative) Urine Nitrite (Negative) Urine Bilirubin (Negative) Urine Urobilinogen (Negative) Ur Leukocyte Esterase (Negative) Urine WBC (Auto) (0-5) /hpf Urine RBC (Auto) (0-4) /hpf U Hyaline Cast (Auto) (0-5) /lpf U Epithel Cells (Auto) (0-5) /lpf Urine Bacteria (Auto) (Negative) SARS-CoV-2, RNA, NAAT NEGATIVE (NEGATIVE) 12/20/22 Range/Units 00:30 WBC (4.8-10.8) K/ul RBC (4.20-5.40) M/uL Hgb (12.0-16.0) g/dl Hct (37.0-47.0) % MCV (80.0-100.0) fL MCH (25.0-34.0) pg MCHC (32.0-36.0) g/dL RDW Std Deviation (36.4-46.3) fL RDW Coeff of Jeny (11.5-14.5) % Plt Count (130-400) K/uL MPV (9.4-12.4) fL Immature Gran % (Auto) % Neut % (Auto) % Lymph % (Auto) % [place] % (Auto) % Eos % (Auto) % Baso % (Auto) % Neut # (Auto) (1.40-6.50) K/uL Lymph # (Auto) (1.2-3.4) K/uL [place] # (Auto) (0.11-0.59) K/uL Eos # (Auto) (0-0.50) K/uL Baso # (Auto) (0-0.2) K/uL Immature Gran # (Auto) (0.01-0.20) K/uL Sodium (136-145) mmol/L Potassium (3.5-5.1) mmol/L Chloride (98-107) mmol/L Carbon Dioxide (21-32) mmol/L Anion Gap (3-11) BUN (6-23) mg/dl Creatinine (0.6-1.2) mg/dl Est Cr Clr Drug Dosing Est GFR ( Amer) ml/min Est GFR (Non-Af Amer) ml/min BUN/Creatinine Ratio (10-20) Glucose (70-99(Fasting)) mg/dl Calcium (8.5-10.1) mg/dl Total Bilirubin (0.2-1.0) mg/dl AST (13-39) U/L ALT (7-52) U/L Alkaline Phosphatase (34-104) U/L Total Protein (6.0-8.3) gm/dl Albumin (3.4-5.0) gm/dl Globulin (2.5-4.0) gm/dl Albumin/Globulin Ratio (0.9-2) Lipase (11-82) U/L Urine Color Yellow Urine Appearance Clear (Clear) Urine pH 5.0 (4.5-7.5) Ur Specific [place] > 1.045 H (1.000-1.030) Urine Protein Negative (Negative) Urine Glucose (UA) Negative (Negative) Urine Ketones Negative (Negative) Urine Blood 2+ H (Negative) Urine Nitrite Negative (Negative) Urine Bilirubin Negative (Negative) Urine Urobilinogen Negative (Negative) Ur Leukocyte Esterase Negative (Negative) Urine WBC (Auto) 1-5 (0-5) /hpf Urine RBC (Auto) 5-10 H (0-4) /hpf U Hyaline Cast (Auto) 0 (0-5) /lpf U Epithel Cells (Auto) 10-20 H (0-5) /lpf Urine Bacteria (Auto) Negative (Negative) SARS-CoV-2, RNA, NAAT (NEGATIVE) Administered Medications Discontinued Medications Diphenhydramine HCl (Diphenhydramine 50 Mg/Ml Vial) 12.5 mg IV NOW STA Stop: 12/19/22 19:57 Last Admin: 12/19/22 20:06 Dose: 12.5 mg Documented By: BRINDA Hydromorphone HCl (Hydromorphone Inj 0.5 Mg/0.5 Ml Syr) 0.5 mg IV NOW STA Stop: 12/19/22 20:36 Last Admin: 12/19/22 21:05 Dose: 0.5 mg Documented By: BRINDA Hydromorphone HCl (Hydromorphone Inj 1 Mg/Ml Syringe) 1 mg IV NOW STA Stop: 12/19/22 23:42 Last Admin: 12/20/22 00:25 Dose: 1 mg Documented By: KELLY Sodium Chloride (Nss 1000ml) 500 mls @ 999 mls/hr IV .Q31M ONE Stop: 12/19/22 20:28 Last Infusion: 12/19/22 20:58 Dose: 0 mls/hr Documented By: Admin: 12/19/22 20:07 Dose: 999 mls/hr Documented By: BRINDA Promethazine HCl (Phenergan) 12.5 mg in 50.5 mls @ 202 mls/hr IV NOW STA Stop: 12/19/22 20:49 Last Admin: 12/19/22 21:05 Dose: 202 mls/hr Documented By: BRINDA Sodium Chloride (Nss 1000ml) 1,000 mls @ 999 mls/hr IV .Q1H1M ONE Stop: 12/19/22 23:32 Last Admin: 12/19/22 22:57 Dose: 999 mls/hr Documented By: KELLY Ioversol (Optiray 350 100ml) 87 ml IV ONCE ONE Stop: 12/19/22 20:51 Last Admin: 12/19/22 20:50 Dose: 87 ml Documented By: GORGE Ketorolac Tromethamine (Ketorolac Tromethamine 15 Mg/Ml Vial) 15 mg IV NOW STA Stop: 12/19/22 21:10 Last Admin: 12/19/22 21:35 Dose: 15 mg Documented By: KELLY Morphine Sulfate (Morphine Sulfate 4 Mg/Ml 1 Ml Carp\Vial) 4 mg IV NOW STA Stop: 12/19/22 19:57 Last Admin: 12/19/22 20:07 Dose: 4 mg Documented By: BRINDA Ondansetron HCl (Ondansetron Inj 2 Mg/Ml 2 Ml Vial) Confirm Administered Dose 4 mg .ROUTE .STK-MED ONE Stop: 12/19/22 19:23 Last Admin: 12/19/22 19:35 Dose: Not Given Documented By: DARRYL Ondansetron HCl (Ondansetron Inj 2 Mg/Ml 2 Ml Vial) 4 mg IV NOW STA Stop: 12/19/22 19:35 Last Admin: 12/19/22 19:35 Dose: 4 mg Documented By: DARRYL Ondansetron HCl (Ondansetron Inj 2 Mg/Ml 2 Ml Vial) 4 mg IV NOW STA Stop: 12/19/22 19:57 Last Admin: 12/19/22 20:06 Dose: 4 mg Documented By: BRINDA Ondansetron HCl (Ondansetron Inj 2 Mg/Ml 2 Ml Vial) 4 mg IV NOW STA Stop: 12/19/22 23:43 Last Admin: 12/20/22 00:25 Dose: 4 mg Documented By: KELLY Imaging Data Radiologist's Impression: Abdomen/Pelvis CT 12/19/22 19:38 CT OF THE ABDOMEN AND PELVIS WITH CONTRAST CLINICAL HISTORY: Abdominal pain status post colonoscopy. COMPARISON STUDY: CT of the abdomen and pelvis October 11, 2022. TECHNIQUE: Following IV administration of 87 mL of Optiray, axial images of the abdomen and pelvis were obtained from the lung bases to the proximal femurs. Images were reviewed in the axial, sagittal, and coronal planes. IV contrast was administered without complication. Automated exposure control was utilized for the study. A dose lowering technique was utilized adhering to the principles of ALARA. CT DOSE: 608.89 mGy.cm FINDINGS: No pneumatosis, free air or portal venous gas is present. There is hepatic steatosis. No hepatic lesions are present. No biliary or pancreatic ductal dilatation. Spleen, adrenal glands and right kidney are unremarkable. 2 left renal cysts measure up to 4.3 cm. The left nephrogram is delayed. There is mild left hydronephrosis due to a 6 mm x 3 mm left ureteropelvic junction calculus. There is associated perinephric and periureteral stranding. There are no additional ureteral calculi. There is no evidence for a bowel obstruction. The appendix is normal. Sigmoid diverticulosis without evidence for acute diverticulitis. There is no lymphadenopathy. Major vasculature is patent. There are no acute fractures within the visualized skeletal structures. IMPRESSION: 1. 6 mm x 3 mm left ureteropelvic junction calculus results in mild left hydronephrosis with delayed nephrogram and perinephric stranding. 2. No pneumoperitoneum. No bowel wall thickening. 3. Sigmoid diverticulosis. No evidence for acute diverticulitis. ACT 112: Negative or not required by law. Electronically signed by: Fco Casarez M.D. 12/19/2022 10:05 PM Discharge Plan Visit Data Chief Complaint: Abdominal Pain Stated Complaint: ABDOMINAL PAIN, NEAR SYNCOPE, NAUSEA ED Provider: Neo Ramirez Discharge Problem: Left sided abdominal pain, Vomiting, Renal colic, Leukocytosis, S/P colonoscopy Patient Disposition: Admitted As Inpatient Condition: Fair Forms Stand Alone Forms: [facility] [employer] Prescriptions Prescriptions: No Action mecobalamin (vitamin B12) 1,000 mcg tablet,chewable 1,000 mcg PO DAILY vitamin E 1,150 unit/1.25 mL liquid 1,150 unit PO DAILY cholecalciferol (vitamin D3) 50 mcg (2,000 unit) capsule 2,000 unit PO DAILY riboflavin (vitamin B2) 400 mg tablet 400 mg PO DAILY Qty: 30 5RF Ubrelvy 100 mg tablet 100 mg PO .COMPLEX PRN (Reason: migraine headache) Qty: 10 5RF Rx Instructions: 100mg po prn migraine, may repeat after 2 hours prn. No more than 2 tabs in 24 hrs. albuterol sulfate 90 mcg/actuation HFA aerosol inhaler 2 puff INHALATION QID PRN (Reason: Wheezing) pantoprazole 40 mg tablet,delayed release (DR/EC) 40 mg PO DAILY Rx Instructions: pt needs refill venlafaxine 75 mg capsule,extended release 24hr 75 mg PO DAILY atorvastatin 40 mg tablet 40 mg PO QPM methimazole 10 mg tablet 10 mg PO DAILY Referrals Referrals: Gilles Archer [Primary Care Provider] -
[2022-12-19 20:14] LABS: Basophils # (auto) 0.06 K/uL (0-0.2); Basophils % (auto) 0.6 %; Eosinophils # (auto) 0.03 K/uL (0-0.50); Eosinophils % (auto) 0.3 %; Hematocrit (blood only) 43.5 % (37.0-47.0); Hemoglobin 14.9 g/dl (12.0-16.0); Immature Granulocytes # (auto) 0.04 K/uL (0.01-0.20); Immature Granulocytes % (auto) 0.4 %; Lymphocytes # (auto) 1.82 K/uL (1.2-3.4); Lymphocytes % (auto) 16.7 %; Mean Corpuscular Hemoglobin 31.1 pg (25.0-34.0); Mean Corpuscular Hgb Conc 34.3 g/dL (32.0-36.0); Mean Corpuscular Volume 90.8 fL (80.0-100.0); Mean Platelet Volume 10.4 fL (9.4-12.4); Monocytes # (auto) 0.53 K/uL (0.11-0.59); Monocytes % (auto) 4.9 %; Neutrophils # (auto) 8.42 K/uL (1.40-6.50); Neutrophils % (auto) 77.1 %; Platelet Count 406 K/uL (130-400); RDW Coefficient of Variation 11.9 % (11.5-14.5); RDW Standard Deviation 39.9 fL (36.4-46.3); Red Blood Count 4.79 M/uL (4.20-5.40)
[2022-12-19] MEDS ORDERED: HYDROmorphone INJ 0.5 MG/0.5 ML SYR IV STA (20:35)
[2022-12-19] MEDS ORDERED: PROMETHAZINE 12.5 MG/50.5 ML BAG IV STA (20:35)
[2022-12-19] MEDS ORDERED: OPTIRAY 350 100ml IV ONE (20:50)
[2022-12-19] MEDS ORDERED: KETOROLAC TROMETHAMINE 15 MG/ML VIAL IV STA (21:09)
--- NOTE | 2022-12-19 22:07 | CT Scan Report ---
CT OF THE ABDOMEN AND PELVIS WITH CONTRAST CLINICAL HISTORY: Abdominal pain status post colonoscopy. COMPARISON STUDY: CT of the abdomen and pelvis October 11, 2022. TECHNIQUE: Following IV administration of 87 mL of Optiray, axial images of the abdomen and pelvis we re obtained from the lung bases to the proximal femurs. Images were reviewed in the axial, sagittal, and coronal planes. IV contrast was administered without complication. Automated exposure control wa s utilized for the study. A dose lowering technique was utilized adhering to the principles of ALARA . CT DOSE: 608.89 mGy.cm FINDINGS: No pneumatosis, free air or portal venous gas is present. There is hepatic steatosis. No he patic lesions are present. No biliary or pancreatic ductal dilatation. Spleen, adrenal glands and rig ht kidney are unremarkable. 2 left renal cysts measure up to 4.3 cm. The left nephrogram is delayed. There is mild left hydronephrosis due to a 6 mm x 3 mm left ureteropelvic junction calculus. There is associated perinephric and periureteral stranding. There are no additional ureteral calculi. There i s no evidence for a bowel obstruction. The appendix is normal. Sigmoid diverticulosis without evidenc e for acute diverticulitis. There is no lymphadenopathy. Major vasculature is patent. There are no ac mira fractures within the visualized skeletal structures. IMPRESSION: 1. 6 mm x 3 mm left ureteropelvic junction calculus results in mild left hydronephrosis with delayed nephrogram and perinephric stranding. 2. No pneumoperitoneum. No bowel wall thickening. 3. Sigmoid diverticulosis. No evidence for acute diverticulitis. ACT 112: Negative or not required by law. Electronically signed by: Fco Casraez M.D. 12/19/2022 10:05 PM
[2022-12-19] MEDS ORDERED: SODIUM CHLORIDE 0.9% 1000ML 1,000 ML IV ONE (22:32)
--- NOTE | 2022-12-19 22:50 | Urology Consultation ---
Date of Consultation December 19, 2022 Assessment & Plan (1) Nephrolithiasis: I discussed with the treating emergency room physician is having the patient admitted on the hospitalist service. Recommend proceeding as follows: Provide analgesics Provide antiemetics Continue hydration measures with IV fluids Urinalysis has been ordered. We will check for the results of these and also obtain a urine culture if appropriate based on urinalysis results. Would recommend initiating antibiotics as the patient is noted to have some perinephric stranding on CT scan At the present time the patient is normotensive without tachycardia. She does not have acute kidney injury and she is noted to be afebrile. Therefore I do not feel she requires an emergent urologic procedure at this time. We will make the patient n.p.o. after midnight tonight and she will be reassessed in the morning and a determination will be made if patient will require cystoscopy with possible stent placement History of Present Illness Reason for Consultation: Nephrolithiasis History of Present Illness This is a 72-year-old female who presented to the emergency department secondary to left-sided flank and abdominal pain. The patient says that she has been having ongoing pain in her left flank and abdomen for approximately 2 months. She says it has never been that severe but got markedly worse today prompting her visit to the emergency department. Patient denies any fevers but has had occasional chills. She has had associated nausea and vomiting. As noted the pain is located in the left flank radiating to the abdomen without modifying factors. The patient notes that she does have some occasional dysuria and this has been going on for approximately 1 month. She says that she was treated with antibiotics as an outpatient. She also believes that she saw some hematuria this morning. The patient initially thought that her pain was related to a recent colonoscopy she underwent as she has had pain with colonoscopies when she has had polyps removed. She does note that she has had a kidney stone many years ago but was able to successfully pass this to without any procedural inter vention. Since arrival to the emergency department the patient has had labs and imaging which independent reviewed. A CT scan of the abdomen pelvis showed the patient had a 6 x 3 mm kidney stone at the left ureteropelvic junction resulting in mild hydronephrosis. There is some associated perinephric and periureteral stranding noted. Labs include a CBC her white blood cell count was 10.9. Hemoglobin and hematocrit were both normal. Platelet count was 406,000. Chemistry profile showed sodium and potassium are both normal as were her BUN and creatinine. A urine sample has been requested but the patient has not provided this yet. At the time my interview the patient was resting comfortably in bed and she was in no distress. Allergies Allergy/AdvReac Type Severity Reaction Status Date / Time sumatriptan Allergy Severe SOB-SWELLIN Verified 12/19/22 12:34 G-RASH codeine Allergy Intermediate Itchiness Verified 12/19/22 12:34 and nausea. oxycodone Allergy Intermediate Rash Verified 12/19/22 12:34 Penicillins Allergy Intermediate Rash Verified 12/19/22 12:34 Home Medications Medication Instructions Recorded Confirmed Type albuterol sulfate 90 mcg/actuation 2 puff inhalation QID PRN Wheezing 02/10/20 12/19/22 History aerosol inhaler pantoprazole 40 mg tablet,delayed 40 mg PO DAILY 08/10/20 12/19/22 History release riboflavin (vitamin B2) 400 mg 400 mg PO DAILY #30 tabs 08/27/21 12/19/22 Rx tablet mecobalamin (vitamin B12) 1,000 1,000 mcg PO DAILY 09/23/21 12/19/22 History mcg chewable tablet venlafaxine 75 mg capsule,extended 75 mg PO DAILY 02/25/22 12/19/22 History release 24 hr vitamin E 1,150 unit/1.25 mL oral 1,150 unit PO DAILY 07/07/22 12/19/22 History liquid cholecalciferol (vitamin D3) 50 2,000 unit PO DAILY 08/03/22 12/19/22 History mcg (2,000 unit) capsule atorvastatin 40 mg tablet 40 mg PO QPM 12/19/22 12/19/22 History methimazole 10 mg tablet 10 mg PO DAILY 12/19/22 12/19/22 History ubrogepant 100 mg tablet (Ubrelvy) 100 mg PO .COMPLEX PRN migraine 12/19/22 12/19/22 Rx headache #10 tabs Patient History Medical History Breast cancer Chronic migraine Fever Graves disease Graves' eye disease Migraines Muscle ache Nocturnal polyuria Surgical History History of ankle surgery History of bilateral mastectomy History of cataract surgery Family History Mother , age 64 of colon cancer Colon cancer Father , age 86 during a surgical procedure. 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 Feels Safe at Home: Yes Review of Systems Constitutional: + chills; no fever Eyes: no diplopia Ear, Nose, Mouth, Throat: no ear pain Respiratory: no cough and no dyspnea Cardiovascular: no chest pain Gastrointestinal: + abdominal pain (Radiating from left flank), + nausea and + vomiting Genitourinary: as per Subjective / HPI Musculoskeletal: + back pain (Left flank) Integumentary: no rash Neurologic: no localized weakness Physical Exam Constitutional: WD/WN, vitals as above Eyes: no conjunctival abnormality Wears glasses ENMT: Ears: no hearing impairment and no external ear abnormality Mouth: no oropharynx abnormality Neck: trachea midline Respiratory: normal respiratory effort; no respiratory distress and no labored breathing Cardiovascular: Rate/Rhythm: regular rate and regular rhythm Vessels: dorsalis pedis pulses present and radial pulses present Gastrointestinal (Abdomen): Soft, nonrigid, nondistended. There is minimal pain with palpation on the left side of her abdomen. There is no rebound tenderness or guarding. Musculoskeletal: No calf tenderness. Feet are warm and nonmottled. Skin: no rashes Neurologic: moves all extremities Psychiatric: A+Ox3, euthymic affect Genitourinary: + CVA tenderness (Noted on left with percussion) Results & Data ([facility]) Vital Signs (Past 12 Hours) Vital Signs Temp Pulse Resp BP Pulse Ox O2 Del Method 12/19/22 19:06 35.9 C L 74 16 143/79 H 97 Room Air PG Care Time/CCT Total # of Minutes Spent Total Time Spent with Patient: Total time spent is greater than 50% in coordination of care (as documented) at patient's floor/unit and/or counseling patient: Coding Level of Care Code 66582 INT INP/OBS CARE Diagnoses Nephrolithiasis N20.0
[2022-12-19] MEDS ORDERED: HYDROmorphone INJ 1 MG/ML SYRINGE IV STA (23:41)
[2022-12-20 00:54] LABS: Appearance Urine Clear (Clear); Bacteria Urine Automated Negative (Negative); Bilirubin Urine Negative (Negative); Blood Urine 2+ (Negative); Cast Urine Automated 0 /lpf (0-5); Color Urine Yellow; Glucose Urine UA Negative (Negative); Ketones Urine Negative (Negative); Leukocyte Esterase Urine Negative (Negative); Nitrite Urine Negative (Negative); Protein Urine Negative (Negative); Specific Gravity Urine > 1.045 (1.000-1.030); Urobilinogen Urine Negative (Negative)
--- NOTE | 2022-12-20 01:07 | History & Physical Report ---
Date of Service December 19, 2022 Assessment & Plan (1) Nephrolithiasis: Plan: 72-year-old female presenting with 5 days of progressive left flank pain, currently "excruciating" with persistent nausea. Laboratory work-up significant for WBC = 10.9 CT of the abdomen with a 6 mm x 3 mm left ureteropelvic junction calculus resulting in mild left hydronephrosis with delayed nephrogram and perinephric stranding. Patient hemodynamically stable, nontoxic in appearance. States that she is able to pass urine but reports that it is less than before Admit to medical telemetry Strain all urine, monitor intake and output Flomax 0.4 mg p.o. nightly Zofran as needed for nausea Morphine as needed for pain Bowel regimen as needed Continue IV fluidsLR at 80 mL/h x 2 L Ceftriaxone 1 g IV daily Urology consultation appreciated (2) Graves disease: Plan: Chronic. Well-controlled. Continue methimazole 10 mg p.o. daily (3) Anxiety: Plan: Chronic. Patient presently quite anxious in the setting of acute pain Pain control as above Continue venlafaxine 75 mg p.o. daily FENLR at 100 mL/h x 2 L, electrolytes within normal limits, n.p.o. for now ProphylaxisTED stockings Codefull per discussion with patient Dispoadmit to medical telemetry History of Present Illness Chief Complaint: Left flank pain Primary Care Provider[facility]illes [facility] 72[facility] presenting with left renal stone. Patient has been ongoing left flank pain over the last 5 days. She thought initially that it was secondary to her recent colonoscopy. Her pain this evening was "excruciating". She also had significant nausea. Additionally, she reports dysuria and decreased urine output as well as urinary incontinence. No additional complaints at this time Upon arrival to the ER she is afebrile, hemodynamic stable, in moderate distress secondary to discomfort. She has received multiple rounds of pain medication as well as antiemetics with minimal improvement. Patient was seen by urology, appreciate recommendations. ER course: Zofran 4 mg IV x3 doses, promethazine 12.5 mg IV Benadryl 12.5 mg IV Morphine 4 mg IV, Dilaudid 0.5 mg IV, Toradol 50 mg IV, Dilaudid 1 mg IV Normal saline x1 L Allergies Allergy/AdvReac Type Severity Reaction Status Date / Time sumatriptan Allergy Severe SOB-SWELLIN Verified 12/19/22 12:34 G-RASH codeine Allergy Intermediate Itchiness Verified 12/19/22 12:34 and nausea. oxycodone Allergy Intermediate Rash Verified 12/19/22 12:34 Penicillins Allergy Intermediate Rash Verified 12/19/22 12:34 Home Medications Medication Instructions Recorded Confirmed Type albuterol sulfate 90 mcg/actuation 2 puff inhalation QID PRN Wheezing 02/10/20 12/19/22 History aerosol inhaler pantoprazole 40 mg tablet,delayed 40 mg PO DAILY 08/10/20 12/19/22 History release riboflavin (vitamin B2) 400 mg 400 mg PO DAILY #30 tabs 08/27/21 12/19/22 Rx tablet mecobalamin (vitamin B12) 1,000 1,000 mcg PO DAILY 09/23/21 12/19/22 History mcg chewable tablet venlafaxine 75 mg capsule,extended 75 mg PO DAILY 02/25/22 12/19/22 History release 24 hr vitamin E 1,150 unit/1.25 mL oral 1,150 unit PO DAILY 07/07/22 12/19/22 History liquid cholecalciferol (vitamin D3) 50 2,000 unit PO DAILY 08/03/22 12/19/22 History mcg (2,000 unit) capsule atorvastatin 40 mg tablet 40 mg PO QPM 12/19/22 12/19/22 History methimazole 10 mg tablet 10 mg PO DAILY 12/19/22 12/19/22 History ubrogepant 100 mg tablet (Ubrelvy) 100 mg PO .COMPLEX PRN migraine 12/19/22 12/19/22 Rx headache #10 tabs Past Med/Surg History Medical History Breast cancer Chronic migraine Fever Graves disease Graves' eye disease Migraines Muscle ache Nocturnal polyuria Surgical History History of ankle surgery History of bilateral mastectomy History of cataract surgery Family History Mother , age 64 of colon cancer Colon cancer Father , age 86 during a surgical procedure. 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 Feels Safe at Home: Yes Review of Systems Review of Systems: All systems reviewed & are unremarkable except as noted in HPI & below Physical Exam Physical Exam: General: patient resting comfortably, NAD, non-toxic in appearance, AA&O x 4, in moderate distress secondary to pain, unsettled in bed Skin: warm, dry, intact, no rashes or lesions HEENT: NC/AT, PERRL, EOMI, anicteric sclera, conjunctiva without injection, external ear normal to inspection and nontender, nares patent, moist mucus membranes, dentition intact, no oropharyngeal lesions, neck supple, trachea midline, no LAD, no thyromegaly, no JVD Heart: +S1/S2, regular, no m/r/g Lungs: equal air entry bilaterally, no rales/rhonchi/wheezes Abd: +BS, soft, NT/ND, no masses/organomegaly/ascites, left flank pain and CVA tenderness Ext: warm, 2+ pulses in UE/LE bilaterally, no clubbing/cyanosis or edema Neuro: nonfocal, patient AA&O x 4, speech intact, no facial droop, moving all extremities on command with equal strength 5/5 Results & Data Results & Data ([facility]) Vital Signs (Past 12 Hours) Vital Signs Temp Pulse Resp BP Pulse Ox O2 Del Method 12/19/22 19:06 35.9 C L 74 16 143/79 H 97 Room Air Laboratory Results Laboratory Results WBC 10.90 K/ul (4.8-10.8) H 12/19/22 19:13 RBC 4.79 M/uL (4.20-5.40) 12/19/22 19:13 Hgb 14.9 g/dl (12.0-16.0) 12/19/22 19:13 Hct 43.5 % (37.0-47.0) 12/19/22 19:13 MCV 90.8 fL (80.0-100.0) 12/19/22 19:13 MCH 31.1 pg (25.0-34.0) 12/19/22 19:13 MCHC 34.3 g/dL (32.0-36.0) 12/19/22 19:13 RDW Std Deviation 39.9 fL (36.4-46.3) 12/19/22 19:13 RDW Coeff of Jeny 11.9 % (11.5-14.5) 12/19/22 19:13 Plt Count 406 K/uL (130-400) H 12/19/22 19:13 MPV 10.4 fL (9.4-12.4) 12/19/22 19:13 Immature Gran % (Auto) 0.4 % 12/19/22 19:13 Neut % (Auto) 77.1 % 12/19/22 19:13 Lymph % (Auto) 16.7 % 12/19/22 19:13 Boyle % (Auto) 4.9 % 12/19/22 19:13 Eos % (Auto) 0.3 % 12/19/22 19:13 Baso % (Auto) 0.6 % 12/19/22 19:13 Neut # (Auto) 8.42 K/uL (1.40-6.50) H 12/19/22 19:13 Lymph # (Auto) 1.82 K/uL (1.2-3.4) 12/19/22 19:13 Boyle # (Auto) 0.53 K/uL (0.11-0.59) 12/19/22 19:13 Eos # (Auto) 0.03 K/uL (0-0.50) 12/19/22 19:13 Baso # (Auto) 0.06 K/uL (0-0.2) 12/19/22 19:13 Immature Gran # (Auto) 0.04 K/uL (0.01-0.20) 12/19/22 19:13 Sodium 141 mmol/L (136-145) 12/19/22 19:13 Potassium 3.8 mmol/L (3.5-5.1) 12/19/22 19:13 Chloride 108 mmol/L (98-107) H 12/19/22 19:13 Carbon Dioxide 21 mmol/L (21-32) 02/06/23 19:13 Anion Gap 12 (3-11) H 12/19/22 19:13 BUN 13 mg/dl (6-23) 12/19/22 19:13 Creatinine 1.01 mg/dl (0.6-1.2) 12/19/22 19:13 Est Cr Clr Drug Dosing Not Reportable 12/19/22 19:13 Est GFR ( Amer) 64.9 ml/min 12/19/22 19:13 Est GFR (Non-Af Amer) 56.0 ml/min 12/19/22 19:13 BUN/Creatinine Ratio 12.9 (10-20) 12/19/22 19:13 Glucose 123 mg/dl (70-99(Fasting)) H 12/19/22 19:13 Calcium 9.8 mg/dl (8.5-10.1) 12/19/22 19:13 Total Bilirubin 0.3 mg/dl (0.2-1.0) 12/19/22 19:13 AST 26 U/L (13-39) 12/19/22 19:13 ALT 59 U/L (7-52) H 12/19/22 19:13 Alkaline Phosphatase 99 U/L (34-104) 12/19/22 19:13 Total Protein 7.5 gm/dl (6.0-8.3) 12/19/22 19:13 Albumin 4.4 gm/dl (3.4-5.0) 12/19/22 19:13 Globulin 3.1 gm/dl (2.5-4.0) 12/19/22 19:13 Albumin/Globulin Ratio 1.4 (0.9-2) 12/19/22 19:13 Lipase 78 U/L (11-82) 12/19/22 19:13 Urine Color Yellow 12/20/22 00:30 Urine Appearance Clear (Clear) 12/20/22 00:30 Urine pH 5.0 (4.5-7.5) 12/20/22 00:30 Ur Specific [place] > 1.045 (1.000-1.030) H 12/20/22 00:30 Urine Protein Negative (Negative) 12/20/22 00:30 Urine Glucose (UA) Negative (Negative) 12/20/22 00:30 Urine Ketones Negative (Negative) 12/20/22 00:30 Urine Blood 2+ (Negative) H 12/20/22 00:30 Urine Nitrite Negative (Negative) 12/20/22 00:30 Urine Bilirubin Negative (Negative) 12/20/22 00:30 Urine Urobilinogen Negative (Negative) 12/20/22 00:30 Ur Leukocyte Esterase Negative (Negative) 12/20/22 00:30 Urine WBC (Auto) 1-5 /hpf (0-5) 12/20/22 00:30 Urine RBC (Auto) 5-10 /hpf (0-4) H 12/20/22 00:30 U Hyaline Cast (Auto) 0 /lpf (0-5) 12/20/22 00:30 U Epithel Cells (Auto) 10-20 /lpf (0-5) H 12/20/22 00:30 Urine Bacteria (Auto) Negative (Negative) 12/20/22 00:30 SARS-CoV-2, RNA, NAAT NEGATIVE (NEGATIVE) 12/20/22 00:30 Impressions Abdomen/Pelvis CT 12/19/22 19:38 CT OF THE ABDOMEN AND PELVIS WITH CONTRAST CLINICAL HISTORY: Abdominal pain status post colonoscopy. COMPARISON STUDY: CT of the abdomen and pelvis October 11, 2022. TECHNIQUE: Following IV administration of 87 mL of Optiray, axial images of the abdomen and pelvis were obtained from the lung bases to the proximal femurs. Images were reviewed in the axial, sagittal, and coronal planes. IV contrast was administered without complication. Automated exposure control was utilized for the study. A dose lowering technique was utilized adhering to the principles of ALARA. CT DOSE: 608.89 mGy.cm FINDINGS: No pneumatosis, free air or portal venous gas is present. There is hepatic steatosis. No hepatic lesions are present. No biliary or pancreatic ductal dilatation. Spleen, adrenal glands and right kidney are unremarkable. 2 left renal cysts measure up to 4.3 cm. The left nephrogram is delayed. There is mild left hydronephrosis due to a 6 mm x 3 mm left ureteropelvic junction calculus. There is associated perinephric and periureteral stranding. There are no additional ureteral calculi. There is no evidence for a bowel obstruction. The appendix is normal. Sigmoid diverticulosis without evidence for acute diverticulitis. There is no lymphadenopathy. Major vasculature is patent. There are no acute fractures within the visualized skeletal structures. IMPRESSION: 1. 6 mm x 3 mm left ureteropelvic junction calculus results in mild left hydr onephrosis with delayed nephrogram and perinephric stranding. 2. No pneumoperitoneum. No bowel wall thickening. 3. Sigmoid diverticulosis. No evidence for acute diverticulitis. ACT 112: Negative or not required by law. Electronically signed by: Fco Casarez M.D. 12/19/2022 10:05 PM Code Status & VTE Plan VTE Prophylaxis Plan VTE Prophylaxis will be ordered: Yes PG Care Time/CCT Total # of Minutes Spent Total Time Spent with Patient: Total time spent is greater than 50% in coordination of care (as documented) at patient's floor/unit and/or counseling patient: Coding Level of Care Code 80899 INT INP/OBS CARE 255MIN Diagnoses Nephrolithiasis N20.0 Graves disease E05.00 Anxiety F41.9
[2022-12-20] MEDS ORDERED: ALBUTEROL HFA 8 GM INHALER INH PRN (01:53)
[2022-12-20] MEDS ORDERED: ACETAMINOPHEN 325 MG TAB PO PRN (01:53)
[2022-12-20] MEDS ORDERED: MoRPHine SULFATE 4 MG/ML 1 ML CARP\\VIAL IV PRN (01:53)
[2022-12-20] MEDS ORDERED: ONDANSETRON INJ 2 MG/ML 2 ML VIAL IV PRN ×2 (01:53→13:39)
[2022-12-20] MEDS ORDERED: DOCUSATE SODIUM 100 MG CAP PO PRN (01:53)
[2022-12-20] MEDS ORDERED: POLYETHYLENE (MIRALAX) 17 GM PACK PO PRN (01:53)
[2022-12-20] MEDS: LACTATED RINGER'S 1,000 ML IV SCH ×2 (02:00→15:44)
[2022-12-20] MEDS: ONDANSETRON INJ 2 MG/ML 2 ML VIAL IV PRN ×2 (03:20→09:49)
[2022-12-20] MEDS: PANTOprazole 40 MG TAB PO SCH (04:16)
[2022-12-20 06:44] LABS: Hematocrit (blood only) 36.3 % (37.0-47.0); Hemoglobin 12.4 g/dl (12.0-16.0); Mean Corpuscular Hemoglobin 31.6 pg (25.0-34.0); Mean Corpuscular Hgb Conc 34.2 g/dL (32.0-36.0); Mean Corpuscular Volume 92.4 fL (80.0-100.0); Platelet Count 292 K/uL (130-400); RDW Coefficient of Variation 11.9 % (11.5-14.5); RDW Standard Deviation 40.7 fL (36.4-46.3); Red Blood Count 3.93 M/uL (4.20-5.40); White Blood Count 8.23 K/ul (4.8-10.8)
[2022-12-20 07:15] LABS: Anion Gap 7 (3-11); BUN Creatinine Ratio 17.6 (10-20); Blood Urea Nitrogen 13 mg/dl (6-23); Carbon Dioxide 23 mmol/L (21-32); Chloride 111 mmol/L (98-107); Est GFR (African American) 94.5 ml/min; Est GFR (Non-African American) 81.5 ml/min; Glucose 91 mg/dl (70-99(Fasting)); Potassium 3.8 mmol/L (3.5-5.1); Sodium 141 mmol/L (136-145)
[2022-12-20] MEDS: methIMAzole 5 MG TABLET PO SCH (07:53)
[2022-12-20] MEDS: VENLAFAXINE HCL XR 75 MG CAPXR PO SCH (07:53)
--- NOTE | 2022-12-20 08:12 | Urology Progress Note ---
Date of Service December 20, 2022 Assessment & Plan (1) Left ureteral stone: (2) Renal colic: Plan 72yo/F admitted with intractable left flank pain secondary to a 6 x 3 mm left UPJ stone causing mild left hydronephrosis Pt afebrile and hemodynamically stable. No leukocytosis and normal renal function. Urinalysis not indicative of infection. We discussed acute stone management with cystoscopy, stent placement, possible stone treatment. She is agreeable. We will plan to proceed to OR today for cystoscopy, left retrograde pyelogram, left ureteral stent placement, possible ureteroscopy, laser lithotripsy, stone treatment depending on findings. Risks and benefits to be reviewed with patient by Dr. Lawrence. OR notified. COVID test negative. Will cover with IV ciprofloxacin. Keep NPO. Continue supportive care and pain management. Urology will follow. Admission and Anticipated Discharge Date Admission Date: December 19, 2022 Subjective Patient examined at bedside this AM. Awake, resting in bed on arrival. No acute distress. Still with left flank pain. Some nausea, no vomiting. No fevers. Voiding without issue. Has been NPO. Review of Systems Constitutional: as per Subjective / HPI Gastrointestinal: as per Subjective / HPI Genitourinary: as per Subjective / HPI Physical Exam Constitutional: well developed and well nourished; no acute distress Respiratory: normal respiratory effort; no respiratory distress and no labored breathing Musculoskeletal: Head/Neck/Chest: normocephalic Skin: No visible rashes or lesions to exposed skin areas Neurologic: moves all extremities and awake Psychiatric: A+Ox3, euthymic affect Results & Data ([facility]) Vital Signs (Past 12 Hours) Vital Signs Temp Pulse Resp BP BP Pulse Ox O2 Del Method 12/20/22 07:05 36.3 C L 60 16 121/73 95 Nasal Cannula 12/20/22 05:32 36.4 C L 12/20/22 03:08 36.3 C L 76 18 162/86 H 97 Nasal Cannula 12/20/22 01:49 Room Air 12/19/22 21:05 70 16 133/84 96 Nasal Cannula O2 Flow Rate 12/20/22 07:05 1.5 12/20/22 05:32 12/20/22 03:08 2 12/20/22 01:49 12/19/22 21:05 2 PG Care Time/CCT Total # of Minutes Spent Total Time Spent with Patient: Total time spent is greater than 50% in coordination of care (as documented) at patient's floor/unit and/or counseling patient: Coding Level of Care Code 41786 SUB INP/OBS CARE 2/35MIN Diagnoses Left ureteral stone N20.1 Renal colic N23
--- NOTE | 2022-12-20 08:15 | Anesthesiology Consultation ---
Date of Service December 20, 2022 Assessment & Plan Chart Review Chart Review: Acceptable Risk for Surgery and Patient NOT seen in Pre Admission Testing History Surgery Operation Date: 12/20/22 09:50 Proposed Procedures p Cystoscopy Left Retrograde Pyelogram Left Stent Plcement Possible Ureteroscopy Laser Lithotripsy with Stone Treatment - Toan Lawrence MD Height/Weight Weight: 82 kg Allergies Allergy/AdvReac Type Severity Reaction Status Date / Time sumatriptan Allergy Severe SOB-SWELLIN Verified 12/19/22 12:34 G-RASH codeine Allergy Intermediate Itchiness Verified 12/19/22 12:34 and nausea. oxycodone Allergy Intermediate Rash Verified 12/19/22 12:34 Penicillins Allergy Intermediate Rash Verified 12/19/22 12:34 Medications Home Medications Medication Instructions Recorded Confirmed Last Taken albuterol sulfate 90 mcg/actuation 2 puff inhalation QID PRN Wheezing 02/10/20 12/19/22 Unknown aerosol inhaler pantoprazole 40 mg tablet,delayed 40 mg PO DAILY 08/10/20 12/19/22 02/24/22 release riboflavin (vitamin B2) 400 mg 400 mg PO DAILY #30 tabs 08/27/21 12/19/22 12/19/22 tablet mecobalamin (vitamin B12) 1,000 1,000 mcg PO DAILY 09/23/21 12/19/22 12/19/22 mcg chewable tablet venlafaxine 75 mg capsule,extended 75 mg PO DAILY 02/25/22 12/19/22 Unknown release 24 hr vitamin E 1,150 unit/1.25 mL oral 1,150 unit PO DAILY 07/07/22 12/19/22 Unknown liquid cholecalciferol (vitamin D3) 50 2,000 unit PO DAILY 08/03/22 12/19/22 12/19/22 mcg (2,000 unit) capsule atorvastatin 40 mg tablet 40 mg PO QPM 12/19/22 12/19/22 12/18/22 methimazole 10 mg tablet 10 mg PO DAILY 12/19/22 12/19/22 12/19/22 ubrogepant 100 mg tablet (Ubrelvy) 100 mg PO .COMPLEX PRN migraine 12/19/22 12/19/22 Unknown headache #10 tabs Active Medications Generic Name Dose Route Start Last Admin Trade Name Freq PRN Reason Stop Dose Admin Lactated Ringer's 1,000 mls @ 80 mls/hr 12/20/22 01:53 12/20/22 02:00 Lr IV 12/21/22 02:52 80 mls/hr .[id number] TIMA Administration Methimazole 10 mg 12/20/22 09:00 12/20/22 07:53 Methimazole 5 Mg Tablet PO 01/19/23 08:59 10 mg DAILY TIMA Administration Morphine Sulfate 4 mg 12/20/22 01:53 12/20/22 07:58 Morphine Sulfate 4 Mg/Ml 1 Ml Carp\Vial IV 01/03/23 01:52 4 mg Q3H PRN Administration Pain (6,7,8,9,10) Ondansetron HCl 4 mg 12/20/22 01:53 12/20/22 03:20 Ondansetron Inj 2 Mg/Ml 2 Ml Vial IV 01/19/23 01:52 4 mg Q6H PRN Administration Nausea Pantoprazole Sodium 40 mg 12/20/22 09:00 12/20/22 04:16 Pantoprazole 40 Mg Tab PO 01/19/23 08:59 40 mg DAILY TIMA Administration Venlafaxine HCl 75 mg 12/20/22 09:00 12/20/22 07:53 Venlafaxine Hcl Xr 75 Mg Capxr PO 01/19/23 08:59 75 mg DAILY TIMA Administration Past Medical History Medical History Breast cancer Chronic migraine Fever Graves disease Graves' eye disease Migraines Muscle ache Nocturnal polyuria Past Family History Family History Mother , age 64 of colon cancer Colon cancer Father , age 86 during a surgical procedure. Diabetes Past Surgical History Surgical History History of ankle surgery History of bilateral mastectomy History of cataract surgery Social History Smoking Status: Never smoker Hx Alcohol Use: No Alcohol type: wine Hx Substance Use: No Physical Exam Vital Signs Last Vital Signs Temp 36.3 C L 12/20/22 07:05 Pulse 60 12/20/22 07:05 Resp 16 12/20/22 07:05 BP 121/73 12/20/22 07:05 Pulse Ox 95 02/07/23 07:05 O2 Del Method 12/20/22 07:05 O2 Flow Rate 1.5 12/20/22 07:05 Testing Laboratory Results 12/20/22 06:14 12/20/22 06:14 Urine Color Yellow 12/20/22 00:30 Urine Appearance Clear (Clear) 12/20/22 00:30 Urine pH 5.0 (4.5-7.5) 12/20/22 00:30 Ur Specific [place] > 1.045 (1.000-1.030) H 12/20/22 00:30 Urine Protein Negative (Negative) 12/20/22 00:30 Urine Glucose (UA) Negative (Negative) 12/20/22 00:30 Urine Ketones Negative (Negative) 12/20/22 00:30 Urine Nitrite Negative (Negative) 12/20/22 00:30 Ur Leukocyte Esterase Negative (Negative) 12/20/22 00:30 Urine WBC (Auto) 1-5 /hpf (0-5) 12/20/22 00:30 Urine RBC (Auto) 5-10 /hpf (0-4) H 12/20/22 00:30 U Hyaline Cast (Auto) 0 /lpf (0-5) 12/20/22 00:30 U Epithel Cells (Auto) 10-20 /lpf (0-5) H 12/20/22 00:30 Urine Bacteria (Auto) Negative (Negative) 12/20/22 00:30
--- NOTE | 2022-12-20 08:23 | Electrocardiogram Report ---
Test Reason : Blood Pressure : / mmHG Vent. Rate : 069 BPM Atrial Rate : 069 BPM P-R Int : 112 ms QRS Dur : 088 ms QT Int : 400 ms P-R-T Axes : 018 037 072 degrees QTc Int : 428 ms Poor data quality, interpretation may be adversely affected Normal sinus rhythm Normal ECG When compared with ECG of 25-FEB-2022 13:43, No significant change was found Confirmed by Rios Santos ([id number]) on 12/20/2022 8:22:30 AM Referred By: REFERRED SELF Confirmed By:Rios Santos
[2022-12-20] MEDS ORDERED: CIPROFLOXACIN / D5W 400 MG/200 ML BAG IV SCH (10:30)
[2022-12-20] MEDS ORDERED: ePHEDrine sulfate 50 MG/ML AMP IV PRN (13:39)
[2022-12-20] MEDS ORDERED: fentaNYL citrate 100 MCG/2 ML VIAL IV PRN (13:39)
[2022-12-20] MEDS ORDERED: ATROPINE SULFATE 0.1 MG/ML 10ML SYR IV PRN (13:39)
[2022-12-20] MEDS ORDERED: MIDAZOLAM HCL 1 MG/ML 2ML VIAL ONE (13:45)
[2022-12-20] MEDS ORDERED: fentaNYL citrate 100 MCG/2 ML VIAL ONE (13:45)
[2022-12-20] MEDS ORDERED: DEXAMETHASONE SOD INJ 4 MG/ML VIAL ONE (13:47)
[2022-12-20] MEDS ORDERED: ONDANSETRON INJ 2 MG/ML 2 ML VIAL ONE (13:47)
[2022-12-20] MEDS ORDERED: PROPOFOL IV EMULSION 10 MG/ML 20 ML VIAL IV ONE (13:47)
[2022-12-20] MEDS ORDERED: LIDOCAINE 2% 2 ML VIAL/AMP(20MG/ML) INFIL ONE (13:47)
--- NOTE | 2022-12-20 14:44 | Operative Report ---
PG Post Operative Report Pre & Post Diagnosis Operation Date: 12/20/22 09:50 Pre-Op Diagnosis: Left renal stone Post-Op Diagnosis: Left renal stone I identified the patient and participated in the time-out.: Yes Procedure Operation Date: 12/20/22 09:50 Actual Procedures p Cystoscopy Left Retrograde Pyelogram Left Stent Placement Ureteroscopy Laser Lithotripsy (Left) - Toan Lawrence MD Surgeon Toan Lawrence MD Air Export Agent none Estimated Blood Loss 0 Findings Consistent with Post-Op Diagnosis Specimens none Description of Procedure The patient was identified in the preoperative holding area, appropriate informed consents were reviewed and completed and the patient was transferred to the operative suite. Upon arrival, appropriate antibiotics and anesthesia were administered and the patient was placed in dorsal lithotomy position and prepped and draped in sterile fashion. To begin the case I passed a 22 [place]uan cystoscope per urethra. Inspection revealed a healthy-appearing urethra and bladder. Ureteral orifices were in orthotopic position. Return my attention to the left UO and cannulated with a s ensor wire and a 10 Nicaraguan double-lumen catheter. A second wire was advanced to the kidney. I then exchanged the 10 [place]araguan double-lumen catheter for a flexible ureteroscope. I felt resistance at the UPJ and identified the stone impacted into the wall of the ureter in this location. Using a 365 m laser fiber I was able to fragment the stone and free it from inside of impaction. There is moder ate irritation of the lateral portion of this ureter. I advanced the scope into the kidney and performed a full renoscopy. She had one Jung's plaque which was treated, no other large retained fragments. I performed a careful exit ureteroscopy and other than the site of prior impaction there were no other areas of inflammation or irritation of the ureter. I placed a 6 [place]ar[place]uan by 24 cm double-J ureteral stents a good curl in the kidney as well as the bladder. The bladder was decompressed and the case was concluded. There were no complications. I attest to the content of the Intraoperative Record and any orders documented therein. Any exceptions are noted below.
--- NOTE | 2022-12-20 15:09 | Hospitalist Progress Note ---
Date of Service December 20, 2022 Assessment & Plan (1) Nephrolithiasis: Plan: 6x3 mm L UPJ stone causing mild L hydro Strain all urine, monitor intake and output Flomax 0.4 mg p.o. nightly Zofran as needed for nausea Morphine as needed for pain Bowel regimen as needed Continue IV fluidsLR at 80 mL/h x 2 L Ceftriaxone 1 g IV daily Urology consulted, appreciate input, for cystoscopy today with stent placement and possible stone treatment (2) Hypoxia: Plan: - Patient receiving IV Morphine, ?contributing - Wean O2 as able to keep O2 sat >90% - No prior h/o COPD, asthma, sleep apnea, tobacco use - Pt high risk d/t hypoxia and receiving IV Morphine (3) Graves disease: Plan: Chronic. Well-controlled. Continue methimazole 10 mg p.o. daily (4) Anxiety: Plan: Chronic. Patient presently quite anxious in the setting of acute pain Pain control as above Continue venlafaxine 75 mg p.o. daily Plan Anticipate patient can be discharged tomorrow (12/21) home with urology follow up as long as able to wean off supplemental O2. Plan has been d/w Dr. Matson. Admission and Anticipated Discharge Date Admission Date: December 19, 2022 Subjective Patient seen on rounds this morning. She is resting comfortably in bed, offers no complaints. Denies flank pain, n/v/d, f/c. Voiding w/o issue. For cystoscopy today with Dr. Lawrence. Physical Exam Physical Exam: GENERAL: 72 yo wd/wn WF. NAD. LUNGS: Clear to auscultation bilaterally. CARDIOVASCULAR: Regular rate and rhythm. ABDOMEN: Soft, NT, ND. BS normoactive x 4 quad. -CVA tenderness. Results & Data Results & Data ([facility]) Vital Signs (Past 12 Hours) Vital Signs Temp Pulse Pulse Resp BP BP Pulse Ox 12/20/22 14:55 74 12 139/65 98 12/20/22 14:46 36.6 C 78 16 148/64 H 98 12/20/22 13:21 37.2 C 69 20 138/65 96 12/20/22 07:05 36.3 C L 60 16 121/73 95 12/20/22 05:32 36.4 C L 12/20/22 03:08 36.3 C L 76 18 162/86 H 97 O2 Del Method O2 Flow Rate 12/20/22 14:55 Oxymask 4 12/20/22 14:46 Oxymask 6 12/20/22 13:21 Room Air 12/20/22 07:05 Nasal Cannula 1.5 12/20/22 05:32 12/20/22 03:08 Nasal Cannula 2 Laboratory Results 12/20/22 06:14 12/20/22 06:14 PG Care Time/CCT Total # of Minutes Spent Total Time Spent with Patient: Total time spent is greater than 50% in coordination of care (as documented) at patient's floor/unit and/or counseling patient: Coding Level of Care Code 54252 SUB INP/OBS CARE 3/50MIN Diagnoses Nephrolithiasis N20.0 Hypoxia R09.02 Graves disease E05.00 Anxiety F41.9
--- NOTE | 2022-12-20 15:19 | Anesthesiology Progress Note ---
Date of Service December 20, 2022 Anesthesia Post Procedure Vital Signs Vital Signs: Temp Pulse Pulse Pulse Resp BP BP 12/20/22 15:15 74 16 116/75 12/20/22 15:05 71 16 131/73 12/20/22 14:55 74 12 139/65 12/20/22 14:46 97.9 F 78 16 148/64 H 12/20/22 13:21 99.0 F 69 20 12/20/22 07:05 97.3 F L 60 16 121/73 12/20/22 05:32 97.5 F L 12/20/22 03:08 97.3 F L 76 18 12/20/22 01:49 12/19/22 21:05 70 16 12/19/22 19:06 96.6 F L 74 16 143/79 H BP Pulse Ox O2 Del Method O2 Flow Rate 12/20/22 15:15 95 Nasal Cannula 2 12/20/22 15:05 97 Oxymask 4 12/20/22 14:55 98 Oxymask 4 12/20/22 14:46 98 Oxymask 6 12/20/22 13:21 138/65 96 Room Air 12/20/22 07:05 95 Nasal Cannula 1.5 12/20/22 05:32 12/20/22 03:08 162/86 H 97 Nasal Cannula 2 12/20/22 01:49 Room Air 12/19/22 21:05 133/84 96 Nasal Cannula 2 12/19/22 19:06 97 Room Air Pain Intensity Left Flank: Pain Intensity: 4 Transfer of Care Handoff Completed per policy Notes Mental Status: alert / awake / arousable and participated in evaluation Patient Amnestic to Procedure: Yes Nausea / Vomiting: adequately controlled Pain: adequately controlled Airway Patency, RR, SpO2: stable & adequate BP & HR: stable & adequate Hydration State: stable & adequate Anesthetic Complications: no major complications apparent and Pt Satisfied with anesthetic care
--- NOTE | 2022-12-20 15:55 | Fluoroscopy Report ---
INTRAOPERATIVE RADIOGRAPHS CLINICAL HISTORY: Left ureteral stent placement. Fluoro time: 4 seconds Exposure: 1.41 mGy FINDINGS: 2 spot fluoroscopic views of the left abdomen are correlated with abdominal CT dated 12/19/19. The initial image shows a lithotripsy device projecting over the left proximal ureter. The second image shows the proximal end of a left ureteral stent in appropriate position. IMPRESSION: Intraoperative images from a left ureteral stent placement procedures Electronically signed by: Neo Salazar M.D. 12/20/2022 3:53 PM
[2022-12-20] MEDS: MoRPHine SULFATE 2 MG/ML CARP IV PRN (19:36)
[2022-12-20] MEDS: TAMSULOSIN HCL 0.4 MG CAP PO SCH (20:25)
[2022-12-20] MEDS: ATORVASTATIN 40 MG TAB PO SCH (20:25)
[2022-12-21] MEDS ORDERED: LACTATED RINGER'S 1,000 ML IV SCH (04:15)
[2022-12-21] MEDS: MoRPHine SULFATE 2 MG/ML CARP IV PRN ×3 (07:32→19:38)
[2022-12-21] MEDS: methIMAzole 5 MG TABLET PO SCH (07:36)
[2022-12-21] MEDS: PANTOprazole 40 MG TAB PO SCH (07:36)
[2022-12-21] MEDS: VENLAFAXINE HCL XR 75 MG CAPXR PO SCH (07:36)
--- NOTE | 2022-12-21 08:09 | Hospitalist Progress Note ---
Date of Service December 21, 2022 Assessment & Plan (1) Nephrolithiasis: Plan: 6x3 mm L UPJ stone causing mild L hydro. Hx stone x 1 in past, did not need intervention Strain urine, continue flomax HS Pain control/bowel regimen prn Urology consulted 12/21 POD# 1 s/p cysto/stent with Dr Lawrence on 12/20 Got dose of Cipro IV w/ stent, not on antibiotics. UA did not appear to be infected on admission Added PO Pyridium/detrol for bladder/ureteral spasm On regular diet Labs from AM --> WBC wnl, Cr stable Added Pyridium/tramadol for pain control (not able to tolerate oxycodone/codeine even w/ prior mastectomy -- able to tolerate tramadol) --> This afternoon 12/21 still w/ burning/discomfort and not comfortable going home--> asked RN to admin oxybutynin (had gotten tramadol/Pyridium this morning) Also req rx for Zofran SL at d/c F/u urology for stent removal early next week -- will need d/c w/ flomax, pyridium, oxybutynin, tramadol for pain control (2) Hypoxia: Plan: 2nd to opiate use Lungs ctab, on room air 94% this morning O2 to maintain sats added incentive spirometer, encourage use remains on room air (3) Graves disease: Plan: Chronic. Well-controlled. Continue methimazole 10 mg p.o. daily Last TSH in system 11.574 -- message out to Dr Pruitt for better coordination of care, ?patient restarted on methimazole after attempting to be off for I131 ablation w/ prednisone use -- see prior endocrinology notes (4) Anxiety: Plan: Chronic. Anxiety worsens pain/pain worsening anxiety Continues on venlafaxine 75mg daily Pyridium/Ditropan/tramadol for pain control -- monitor response ?if related to her underlying Graves/thyroid disease Plan continued inpatient stay pain control anticipating d/c tomorrow Admission and Anticipated Discharge Date Admission Date: December 19, 2022 Supervising Physician Co-Signing Physician Notes HELENA Supervision Note: I did not personally see or examine the patient today, but I verified all howe points of HELENA Swanson's assessment and plan with the following exceptions/additions: None Subjective eval this morning, got dose of morphine for pain. States feeling MUCH better than on admission. discussed burning pain and pyridium/ditropan. she states was seen by urology and noted the Pyridium due to orange urine, agreeable to try. Unable to tolerate the codeine/oxycodone, even w/ her prior mastectomy but was able to tolerate tramadol. Discussed will order. If pain controlled this afternoon on oral agents planning for discharge. No fever/chills, chest pain, shortness of breath reported. Would like to have rx for zoan SL at d/c. Pharmacy [facility]. Physical Exam Physical Exam: General: WD/WN female sitting up in bed, NAD HEENT: head normocephalic,atraumatic, mmm, trachea midline Resp CTAB, slighly diminished in the bases, no w/c, on room air CV: RRR, no m/r/g, no pitting edema/calf tenderness GI: +BS, soft/NT MSK/Neuro: moves all extremities, no focal deficit Psych: AOx3, pleasant and cooperative but anxious about dc too soon if pain not well controlled with oral agents Results & Data Results & Data ([facility]) Vital Signs (Past 12 Hours) Vital Signs Temp Pulse Resp BP BP Pulse Ox O2 Del Method 12/21/22 07:06 36.5 C 74 16 116/68 94 Room Air 12/21/22 04:47 99/61 L 12/21/22 03:52 36.4 C L 68 16 90/54 L 94 Room Air 12/20/22 22:31 36.5 C 77 16 107/68 94 Room Air Laboratory Results 12/21/22 12/21/22 Range/Units 08:29 08:29 WBC 7.97 (4.8-10.8) K/ul RBC 3.98 L (4.20-5.40) M/uL Hgb 12.5 (12.0-16.0) g/dl Hct 36.6 L (37.0-47.0) % MCV 92.0 (80.0-100.0) fL MCH 31.4 (25.0-34.0) pg MCHC 34.2 (32.0-36.0) g/dL RDW Std Deviation 39.8 (36.4-46.3) fL RDW Coeff of Jeny 11.7 (11.5-14.5) % Plt Count 286 (130-400) K/uL MPV 10.1 (9.4-12.4) fL Sodium 140 (136-145) mmol/L Potassium 3.7 (3.5-5.1) mmol/L Chloride 109 H (98-107) mmol/L Carbon Dioxide 25 (21-32) mmol/L Anion Gap 6 (3-11) BUN 11 (6-23) mg/dl Creatinine 0.67 (0.6-1.2) mg/dl Est Cr Clr Drug Dosing 88.2 ml/min Est GFR ( Amer) 102.5 ml/min Est GFR (Non-Af Amer) 88.4 ml/min BUN/Creatinine Ratio 16.4 (10-20) Glucose 125 H (70-99(Fasting)) mg/dl Calcium 9.1 (8.5-10.1) mg/dl Diagnostic Findings Abdomen Fluoroscopy 12/20/22 00:00 INTRAOPERATIVE RADIOGRAPHS CLINICAL HISTORY: Left ureteral stent placement. Fluoro time: 4 seconds Exposure: 1.41 mGy FINDINGS: 2 spot fluoroscopic views of the left abdomen are correlated with abdominal CT dated 12/19/2022. The initial image shows a lithotripsy device projec ting over the left proximal ureter. The second image shows the proximal end of a left ureteral stent in appropriate position. IMPRESSION: Intraoperative images from a left ureteral stent placement p [email or web address] Electronically signed by: Neo Salazar M.D. 12/20/2022 3:53 PM PG Care Time/CCT Total # of Minutes Spent Total Time Spent with Patient: Total time spent is greater than 50% in coordination of care (as documented) at patient's floor/unit and/or counseling patient: Coding Level of Care Code 16272 SUB INP/OBS CARE 3/50MIN Diagnoses Nephrolithiasis N20.0 Hypoxia R09.02 Graves disease E05.00 Anxiety F41.9
[2022-12-21 08:59] LABS: Hematocrit (blood only) 36.6 % (37.0-47.0); Hemoglobin 12.5 g/dl (12.0-16.0); Mean Corpuscular Hemoglobin 31.4 pg (25.0-34.0); Mean Corpuscular Hgb Conc 34.2 g/dL (32.0-36.0); Mean Platelet Volume 10.1 fL (9.4-12.4); Platelet Count 286 K/uL (130-400); RDW Coefficient of Variation 11.7 % (11.5-14.5); RDW Standard Deviation 39.8 fL (36.4-46.3); Red Blood Count 3.98 M/uL (4.20-5.40); White Blood Count 7.97 K/ul (4.8-10.8)
[2022-12-21 09:17] LABS: BUN Creatinine Ratio 16.4 (10-20); Calcium 9.1 mg/dl (8.5-10.1); Creatinine Clr Calc Pharmacy 88.2 ml/min; Est GFR (African American) 102.5 ml/min; Est GFR (Non-African American) 88.4 ml/min; Potassium 3.7 mmol/L (3.5-5.1)
[2022-12-21] MEDS: traMADol HCL 50 MG TABLET PO PRN ×2 (11:04→22:24)
[2022-12-21] MEDS: PHENAZOPYRIDINE HCL 100 MG TAB PO PRN (11:46)
--- NOTE | 2022-12-21 12:50 | Urology Progress Note ---
Date of Service December 21, 2022 Assessment & Plan (1) Left ureteral stone: (2) Renal colic: Plan 72yo/F admitted with intractable left flank pain secondary to a 6 x 3 mm left UPJ stone causing mild left hydronephrosis Postop day #1 Cystoscopy Left Retrograde Pyelogram Left Stent Placement Ureteroscopy Laser Lithotripsy with Dr. Lawrence. Tolerating the ureteral stent with minimal bother. Some dysuria as expected. She is afebrile and hemodynamically stable. No leukocytosis and normal renal function. Urinalysis on admission not indicative of infection. Okay for discharge from urology perspective. Recommend discharge with tamsulosin, prn Pyridium, prn oxybutynin for stent management. Will arrange outpatient follow-up with our service for stent removal. Urology will sign-off. Please contact us any further questions, concerns, or changes in patient status. Admission and Anticipated Discharge Date Admission Date: December 19, 2022 Supervising Physician Co-Signing Physician Notes Discussed patient with ALEXUS. Agree with plan. Subjective Patient examined at bedside this AM. Awake, resting in bed on arrival. No acute distress. Tolerating the ureteral stent with minimal discomfort. Does note some dysuria. Voiding without issue. No fevers. Review of Systems Constitutional: as per Subjective / HPI Genitourinary: as per Subjective / HPI Physical Exam Constitutional: well developed and well nourished; no acute distress Respiratory: normal respiratory effort; no respiratory distress and no labored breathing Musculoskeletal: Head/Neck/Chest: normocephalic Skin: No visible rashes or lesions to exposed skin areas Neurologic: moves all extremities and awake Psychiatric: A+Ox3, euthymic affect Results & Data ([place]) Vital Signs (Past 12 Hours) Vital Signs Temp Pulse Resp BP BP Pulse Ox O2 Del Method 12/21/22 07:06 36.5 C 74 16 116/68 94 Room Air 12/21/22 04:47 99/61 L 12/21/22 03:52 36.4 C L 68 16 90/54 L 94 Room Air PG Care Time/CCT Total # of Minutes Spent Total Time Spent with Patient: Total time spent is greater than 50% in coordination of care (as documented) at patient's floor/unit and/or counseling patient: Coding Level of Care Code 68158 SUB INP/OBS CARE 1/25MIN Diagnoses Left ureteral stone N20.1 Renal colic N23
[2022-12-21] MEDS: OXYBUTYNIN CHLORIDE 5 MG TAB PO PRN (13:40)
[2022-12-21] MEDS: POLYETHYLENE (MIRALAX) 17 GM PACK PO SCH (16:33)
[2022-12-21] MEDS: DOCUSATE SODIUM/SENNA 50/8.6MG TAB PO SCH (16:33)
[2022-12-21] MEDS: ATORVASTATIN 40 MG TAB PO SCH (19:38)
[2022-12-21] MEDS: TAMSULOSIN HCL 0.4 MG CAP PO SCH (19:38)
[2022-12-22] MEDS ORDERED: MELATONIN 3 MG TAB PO PRN (00:34)
[2022-12-22 06:31] LABS: Thyroid Stimulating Hormone 0.251 uIu/ml (0.300-4.500)
[2022-12-22 06:36] LABS: BUN Creatinine Ratio 18.3 (10-20); Calcium 8.5 mg/dl (8.5-10.1); Creatinine Clr Calc Pharmacy 83.2 ml/min; Est GFR (African American) 99.3 ml/min; Est GFR (Non-African American) 85.7 ml/min
[2022-12-22 07:06] LABS: T4 Free Thyroxine 0.89 ng/dl (0.61-1.60)
--- NOTE | 2022-12-22 07:32 | Hospitalist Progress Note ---
Date of Service December 22, 2022 Assessment & Plan (1) Nephrolithiasis: Plan: 6x3 mm L UPJ stone causing mild L hydro. Hx stone x 1 in past, did not need intervention Strain urine, continue flomax HS Pain control/bowel regimen prn Urology consulted 12/21 POD# 1 s/p cysto/stent with Dr Lwarence on 12/20 Got dose of Cipro IV w/ stent, not on antibiotics. UA did not appear to be infected on admission Added PO Pyridium/detrol for bladder/ureteral spasm On regular diet Labs from AM --> WBC wnl, Cr stable Added Pyridium/tramadol for pain control (not able to tolerate oxycodone/codeine even w/ prior mastectomy -- able to tolerate tramadol) --> This afternoon 12/21 still w/ burning/discomfort and not comfortable going home--> asked RN to admin oxybutynin (had gotten tramadol/Pyridium this morning) Also req rx for Zofran SL at d/c F/u urology for stent removal early next week -- will need d/c w/ flomax, pyridium, oxybutynin, tramadol for pain control (2) Hypoxia: Plan: 2nd to opiate use Lungs ctab, on room air 94% this morning O2 to maintain sats added incentive spirometer, encourage use remains on room air (3) Graves disease: Plan: Chronic. Well-controlled. Continue methimazole 10 mg p.o. daily Last TSH in system 11.574 -- message out to Dr Pruitt for better coordination of care, ?patient restarted on methimazole after attempting to be off for I131 ablation w/ prednisone use -- see prior endocrinology notes (4) Anxiety: Plan: Chronic. Anxiety worsens pain/pain worsening anxiety Continues on venlafaxine 75mg daily Pyridium/Ditropan/tramadol for pain control -- monitor response ?if related to her underlying Graves/thyroid disease Plan continued inpatient stay pain control anticipating d/c tomorrow Admission and Anticipated Discharge Date Admission Date: December 19, 2022 Results & Data Results & Data ([facility]) Vital Signs (Past 12 Hours) Vital Signs Temp Pulse Resp BP Pulse Ox O2 Del Method 12/21/22 22:06 36.6 C 69 16 118/71 94 Room Air 12/21/22 19:44 Room Air PG Care Time/CCT Total # of Minutes Spent Total Time Spent with Patient: Total time spent is greater than 50% in coordination of care (as documented) at patient's floor/unit and/or counseling patient: Coding Diagnoses Nephrolithiasis N20.0 Hypoxia R09.02 Graves disease E05.00 Anxiety F41.9
[2022-12-22] MEDS: methIMAzole 5 MG TABLET PO SCH (09:31)
[2022-12-22] MEDS: PANTOprazole 40 MG TAB PO SCH (09:31)
[2022-12-22] MEDS: DOCUSATE SODIUM/SENNA 50/8.6MG TAB PO SCH (09:31)
[2022-12-22] MEDS: VENLAFAXINE HCL XR 75 MG CAPXR PO SCH (09:31)
--- NOTE | 2022-12-22 09:31 | XRay Report ---
KUB HISTORY: Acute lower abdominal pain patient with constipation lower abd pain, eval constipation COMPARISON: CT abdomen pelvis 12/19/2022 FINDINGS: Nonobstructive bowel gas pattern. Mild to moderate colonic fecal retention. A left ureteral stent appears to be in satisfactory positioning. No renal calculi. No ureteral calculi. No pneumope ritoneum or pneumatosis. No fracture. IMPRESSION: 1. Satisfactory positioning of the left ureteral stent. No ureteral calculi identified. 2. Nonobstructive bowel gas pattern. 3. Moderate colonic fecal retention. ACT 112: Negative or not required by law. The above report was generated using voice recognition software. It may contain grammatical, syntax o r spelling errors. Electronically signed by: Fredi Taylor M.D. 12/22/2022 9:30 AM
[2022-12-22] MEDS: OXYBUTYNIN CHLORIDE 5 MG TAB PO PRN (09:33)
[2022-12-22] MEDS: PHENAZOPYRIDINE HCL 100 MG TAB PO PRN (09:33)
[2022-12-22] MEDS: POLYETHYLENE (MIRALAX) 17 GM PACK PO SCH (09:34)
--- NOTE | 2022-12-22 09:38 | Discharge Summary ---
Date of Service December 22, 2022 Admission HPI Per Admitting Provider Jannie Galvan is a 72yo female presenting with left renal stone. Patient has been ongoing left flank pain over the last 5 days. She thought initially that it was secondary to her recent colonoscopy. Her pain this evening was "excruciating". She also had significant nausea. Additionally, she reports dysuria and decreased urine output as well as urinary incontinence. No additional complaints at this time Upon arrival to the ER she is afebrile, hemodynamic stable, in moderate distress secondary to discomfort. She has received multiple rounds of pain medication as well as antiemetics with minimal improvement. Patient was seen by urology, appreciate recommendations. ER course: Zofran 4 mg IV x3 doses, promethazine 12.5 mg IV Benadryl 12.5 mg IV Morphine 4 mg IV, Dilaudid 0.5 mg IV, Toradol 50 mg IV, Dilaudid 1 mg IV Normal saline x1 L Admission Exam Per Admitting Provider General: patient resting comfortably, NAD, non-toxic in appearance, AA&O x 4, in moderate distress secondary to pain, unsettled in bed Skin: warm, dry, intact, no rashes or lesions HEENT: NC/AT, PERRL, EOMI, anicteric sclera, conjunctiva without injection, external ear normal to inspection and nontender, nares patent, moist mucus membranes, dentition intact, no oropharyngeal lesions, neck supple, trachea midline, no LAD, no thyromegaly, no JVD Heart: +S1/S2, regular, no m/r/g Lungs: equal air entry bilaterally, no rales/rhonchi/wheezes Abd: +BS, soft, NT/ND, no masses/organomegaly/ascites, left flank pain and CVA tenderness Ext: warm, 2+ pulses in UE/LE bilaterally, no clubbing/cyanosis or edema Neuro: nonfocal, patient AA&O x 4, speech intact, no facial droop, moving all extremities on command with equal strength 5/5 Principal Diagnosis Nephrolithiasis Discharge Exam General: WD/WN female sitting up in bed, NAD HEENT: head normocephalic,atraumatic, mmm, trachea midline Resp CTAB, slighly diminished in the bases, no w/c, on room air CV: RRR, no m/r/g, no pitting edema/calf tenderness GI: +BS, soft/NT, slight discomfort to deep palpation LLQ, no rebound/guarding MSK/Neuro: moves all extremities, no focal deficit Psych: AOx3, cooperative Discharge Data Allergies Allergy/AdvReac Type Severity Reaction Status Date / Time sumatriptan Allergy Severe SOB-SWELLIN Verified 12/19/22 12:34 G-RASH codeine Allergy Intermediate Itchiness Verified 12/19/22 12:34 and nausea. oxycodone Allergy Intermediate Rash Verified 12/19/22 12:34 Penicillins Allergy Intermediate Rash Verified 12/19/22 12:34 Consultations 12/19/22 22:33 ED Decision to Admit Stat Procedures Performed Operation Date: 12/20/22 09:50 Actual Procedures p Cystoscopy Left Retrograde Pyelogram, Ureteroscopy Laser Lithotripsy (Left) - Toan Lawrence MD s Left Stent Placement(Left) - Toan Lawrence MD Ordered Studies Abdomen/Pelvis CT 12/19/22 19:38 CT OF THE ABDOMEN AND PELVIS WITH CONTRAST CLINICAL HISTORY: Abdominal pain status post colonoscopy. COMPARISON STUDY: CT of the abdomen and pelvis October 11, 2022. TECHNIQUE: Following IV administration of 87 mL of Optiray, axial images of the abdomen and pelvis were obtained from the lung bases to the proximal femurs. Images were reviewed in the axial, sagittal, and coronal planes. IV contrast was administered without complication. Automated exposure control was utilized for the study. A dose lowering technique was utilized adhering to the principles of ALARA. CT DOSE: 608.89 mGy.cm FINDINGS: No pneumatosis, free air or portal venous gas is present. There is hepatic steatosis. No hepatic lesions are present. No biliary or pancreatic ductal dilatation. Spleen, adrenal glands and right kidney are unremarkable. 2 left renal cysts measure up to 4.3 cm. The left nephrogram is delayed. There is mild left hydronephrosis due to a 6 mm x 3 mm left ureteropelvic junction calculus. There is associated perinephric and periureteral stranding. There are no additional ureteral calculi. There is no evidence for a bowel obstruction. The appendix is normal. Sigmoid diverticulosis without evidence for acute diverticulitis. There is no lymphadenopathy. Major vasculature is patent. There are no acute fractures within the visualized skeletal structures. IMPRESSION: 1. 6 mm x 3 mm left ureteropelvic junction calculus results in mild left hydronephrosis with delayed nephrogram and perinephric stranding. 2. No pneumoperitoneum. No bowel wall thickening. 3. Sigmoid diverticulosis. No evidence for acute diverticulitis. ACT 112: Negative or not required by law. Electronically signed by: Fco Casarez M.D. 12/19/2022 10:05 PM Abdomen Fluoroscopy 12/20/22 00:00 INTRAOPERATIVE RADIOGRAPHS CLINICAL HISTORY: Left ureteral stent placement. Fluoro time: 4 seconds Exposure: 1.41 mGy FINDINGS: 2 spot fluoroscopic views of the left abdomen are correlated with abdominal CT dated 12/19/2022. The initial image shows a lithotripsy device projecting over the left proximal ureter. The second image shows the proximal end of a left ureteral stent in appropriate position. IMPRESSION: Intraoperative images from a left ureteral stent placement procedures Electronically signed by: Neo Salazar M.D. 12/20/2022 3:53 PM KUB X-Ray 12/22/22 07:31 KUB HISTORY: Acute lower abdominal pain patient with constipation lower abd pain, eval constipation COMPARISON: CT abdomen pelvis 12/19/2022 FINDINGS: Nonobstructive bowel gas pattern. Mild to moderate colonic fecal retention. A left ureteral stent appears to be in satisfactory positioning. No renal calculi. No ureteral calculi. No pneumoperitoneum or pneumatosis. No fracture. IMPRESSION: 1. Satisfactory positioning of the left ureteral stent. No ureteral calculi identified. 2. Nonobstructive bowel gas pattern. 3. Moderate colonic fecal retention. ACT 112: Negative or not required by law. The above report was generated using voice recognition software. It may contain grammatical, syntax or spelling errors. Electronically signed by: Fredi Taylor M.D. 12/22/2022 9:30 AM Hospital Course (1) Nephrolithiasis: 6x3 mm L UPJ stone causing mild L hydro. Hx stone x 1 in past, did not need intervention Urology consulted s/p cysto/stent with Dr Lawrence on 12/20 Cipro IV w/ stent provided but no evidence for infection, no leukocytosis/fever. no bacteria on UA Pain control/bowel regimen -- tramadol for PO as unable to tolerate oxycodone/codeine products Rx for pyridium/detrol for spasms, to continue flomax HS. Short course zofran per pt request To continue bowel regimen at d/c, is passing gas and wanted to have BM at home. F/u outpatient early next week arrange w/ urology (2) Hypoxia: 2nd to opiate use Lungs ctab, on room air continue incentive spirometer (3) Graves disease: Chronic. Well-controlled. Continue methimazole 10 mg p.o. daily Last TSH in system 11.574 -- message out to Dr Pruitt for better coordination of care, ?patient restarted on methimazole after attempting to be off for I131 ablation w/ prednisone use -- see prior endocrinology notes TSH 0.251, Ft40.89 -- messaged Dr Pruitt prior to d/c. Recs to repeat TFT in 3 weeks and follow up outpatient (4) Anxiety: Chronic. Anxiety worsens pain/pain worsening anxiety Continues on venlafaxine 75mg daily Tx graves as above Plan discharged home, urology f/u Total Time Total Time Spent Total Time Spent (In Minutes): 40 Discharge Plan Discharge Items Patient Disposition: Home - Self-Care Reason For Visit: RENAL STONE Discharge Diagnosis: Kidney Stone Condition on Discharge: Fair Goals: You have been hospitalized for an urgent problem which required surgery. During your stay at [facility], we have made an effort to correct the problem that brought you to the hospital while keeping you as comfortable as possible. Surgery and medications were used to bring your condition under control and your discharge instructions will include directions for any medications you should take after leaving the hospital. Please make sure to follow the advice of your surgeon regarding follow up with the surgeon and with your primary care provider. Activity: As commented below Non-emergency contact: Primary Care Provider and Urologist Call non-emergency contact if: you have any medication questions, your symptoms worsen, your pain is not controlled and you have a fever Follow-up/Referrals: Toan Lawrence MD [Physician] - 12/26/22 12:50 pm Gilles Archer [Primary Care Provider] - 12/27/22 9:05 am () Diet: Regular Addtl Attending Provider Instructions: You have been hospitalized and found to have a kidney stone. Urology was consulted and you underwent cystoscopy and placement of a stent. You will continue Flomax 0.4mg at night to help expel remnants of stone. You will have prescriptions for Pyridium (for bladder spasms), oxybutynin (for ureteral/stent spasm) to use as needed. Please note, the Pyridium can cause urine to be orange in color. We have sent prescription for zofran to use as needed for nausea. You have also been sent tramadol as needed for pain control. We checked thyroid levels and I talked with Dr Pruitt. They were improved from November. He recommends continuing your methimazole 10mg daily and have repeat labs outpatient in another 3 weeks and can have adjustments to your medications if ne eded. Please follow up with Urology to have stent removal. Please follow up with primary care in the next 7-10 days to monitor your status since hospitalization. Please return to the ER for any fevers, worsening pain, shortness of breath, inability to keep up with oral intake, or for any other symptoms concerning for you. It has been a pleasure being a part of the medical team providing for you while you have been in the hospital. Take care! Addtl Aviation Safety Officer Provider Instructions: Please call our office at [phone] with any questions, concerns or need to reschedule appointments for any reason. We are happy to assist you. While you have a ureteral stent in place: Some discomfort is normal. Certain movements may trigger pain or a feeling that you need to urinate. You may also feel mild soreness or pressure before or during urination. These symptoms should go away a few days after the stent is removed. Your urine may be slightly pink or red. This is due to bleeding caused by minor irritation from the stent. This may happen on and off while you have the stent, it is not harmful and is to be expected. Medication to help minimize discomfort or bladder spasms, or to prevent infection may be prescribed. Take this as directed. Drink plenty of fluids to help flush out your urinary tract. How long will you need a stent? The urology office will contact you to arrange a follow-up visit. When to [place] [facility] at [phone]: Your urine contains heavy blood clots or you are unable to urinate You are constantly leaking urine Fever of 101F or higher, chills, nausea, or vomiting Your pain is not relieved with medication The end of the stent comes out of your urethra Pending Studies at Discharge: No Stand-Alone Forms: My [facility] Medications and DC Order Prescriptions: New tramadol 50 mg Tablet 50 mg PO Q4H PRN (Reason: pain) Qty: 8 0RF tamsulosin 0.4 mg Capsule 0.4 mg PO HS Qty: 30 0RF phenazopyridine [Pyridium] 100 mg Tablet 100 mg PO TID PRN (Reason: bladder spasm) Qty: 14 0RF oxybutynin chloride 5 mg Tablet 5 mg PO BID PRN (Reason: ureteral spasm) Qty: 14 0RF ondansetron 4 mg tablet,disintegrating 4 mg PO Q8H PRN (Reason: nausea and vomiting) 4 Days Qty: 10 0RF Continued mecobalamin (vitamin B12) 1,000 mcg tablet,chewable 1,000 mcg PO DAILY vitamin E 1,150 unit/1.25 mL liquid 1,150 unit PO DAILY cholecalciferol (vitamin D3) 50 mcg (2,000 unit) capsule 2,000 unit PO DAILY riboflavin (vitamin B2) 400 mg tablet 400 mg PO DAILY Qty: 30 5RF Ubrelvy 100 mg tablet 100 mg PO .COMPLEX PRN (Reason: migraine headache) Qty: 10 5RF Rx Instructions: 100mg po prn migraine, may repeat after 2 hours prn. No more than 2 tabs in 24 hrs. albuterol sulfate 90 mcg/actuation HFA aerosol inhaler 2 puff INHALATION QID PRN (Reason: Wheezing) pantoprazole 40 mg tablet,delayed release (DR/EC) 40 mg PO DAILY Rx Instructions: pt needs refill venlafaxine 75 mg capsule,extended release 24hr 75 mg PO DAILY atorvastatin 40 mg tablet 40 mg PO QPM methimazole 10 mg tablet 10 mg PO DAILY Discharge Orders: Discharge Order (Routine); Ordered 12/22/22 Ordered By: Tania Chan/Other Patient Handouts: Hematuria: Possible Causes, Understanding Kidney Stones, Identifying Kidney Stones Admission Data Admit Date/Time: 12/19/22 23:34 Attending Provider: Shu Licona Admit Provider: Celine Lewis Primary Care Provider: Gilles Archer Other Providers: Celine Lewis Other Interventions: Discharge Summary Assessment (RN) Last Done: 12/22/22 08:13 Supervising Physician Co-Signing Physician Notes PA Supervision Note: I personally saw and examined the patient. I verified all howe points and agree with HELENA Swanson with the following exceptions and/or additions: S-Pt feeling well. Some minimal residual LLQ pain NO CP, SOB O- Vitals reviewed Gen: [AAOx3, NAD] HEENT: [anicteric sclerae, EOMI] CV: [RRR no mgr nl S1S2] Pulm: [CTAB no wcr] Abd: [+BS soft mild +TTP LLQ w/o guarding or rebound ND no masses or hernias] Ext: [no edema, 2+ DP pulses] Skin: [no rashes, warm/dry] Neuro: [full strength throughout] A/P-72 yo female here with ureterolithiasis now s/p ureteral stent placeemnt. No UTI or sepsis, no DAVID Improved and stable for dc to home Coding Level of Care Code HOSP INP/OBS DISCH >30 MIN Diagnoses Nephrolithiasis N20.0 Hypoxia R09.02 Graves disease E05.00 Anxiety F41.9
== END 2022-12-22 12:36 | disposition home or self-care (01) | DRG 661 ==
LOC: ED 19:03 → SUATTDRO 23:34 → 3E 23:34